=== PATIENT | male | born 1950 | race Two or more races ===

== ENCOUNTER 2017-11-12 10:25 | Observation (INO) | payer OTHER ==
[2017-11-12 11:07] LABS: BASO % 0.4 % (0-2.0); EOS % 1.1 % (0-4.5); HEMATOCRIT 40.9 % (35.4-49); HEMOGLOBIN 13.9 GM/dL (11.7-16.9); LYMPH % 6.6 % (8-40); MCH 29.7 pg (25.7-33.7); MCHC 33.9 g/dl (32.0-35.9); MEAN CELL VOLUME 87.6 fl (80-96); MEAN PLT VOLUME 9.2 fl (7.5-11.1); NEUT % 84.9 % (42.8-82.8); PLATELET COUNT 182 K/MM3 (134-434); RBC 4.67 M/mm3 (4.00-5.60); RDW 12.9 % (11.9-15.9); WHITE BLOOD COUNT 9.5 K/mm3 (4.0-10.0)
--- NOTE | 2017-11-12 11:43 | PDOC ---
History of Present Illness - General Chief Complaint: Blood Sugar Problem Stated Complaint: LOW SUGAR Time Seen by Provider: 11/12/17 10:34 History Source: Patient - History of Present Illness Associated Symptoms: denies: cough, fever/chills, headaches, nausea/vomiting, shortness of breath Past History - Past Medical History Allergies/Adverse Reactions: Allergies Allergy/AdvReac Type Severity Reaction Status Date / Time No Known Drug Allergies Allergy Verified 11/12/17 10:38 Home Medications: Ambulatory Orders Aspirin [Aspirin EC] 81 mg PO DAILY 11/12/17 Enalapril Maleate [Vasotec -] 10 mg PO DAILY 11/12/17 Fluoxetine HCl [Prozac] 20 mg PO DAILY 11/12/17 Fluticasone Prop 0.05% Nasal [Flonase -] 1 - 2 spray NS DAILY 11/12/17 Insulin Aspart [Novolog] 20 unit SQ BID 11/12/17 Insulin Glargine,Hum.rec.anlog [Basaglar Kwikpen U-100] 40 unit SQ AM 11/12/17 Metformin HCl [Metformin HCl ER] 1,000 mg PO DAILY 11/12/17 Omeprazole 40 mg PO DAILY 11/12/17 Oxybutynin Chloride [Oxybutynin Chloride ER] 10 mg PO DAILY 11/12/17 Pramipexole Di-HCl [Mirapex] 0.25 mg PO DAILY 11/12/17 Pravastatin Sodium 20 mg PO DAILY 11/12/17 Repaglinide [Prandin -] 2 mg PO DAILY 11/12/17 Risperidone [Risperdal] 1 mg PO DAILY 11/12/17 Tamsulosin HCl [Flomax] 0.4 mg PO DAILY 11/12/17 Anemia: No Asthma: No Cancer: No Cardiac Disorders: Yes CVA: No COPD: No CHF: No Dementia: No Diabetes: Yes GI Disorders: No Disorders: Yes (Renal stones/Lithotripsy) HTN: Yes Hypercholesterolemia: Yes Liver Disease: No Seizures: No Thyroid Disease: No - Suicide/Smoking/Psychosocial Hx Smoking History: Never smoked Have you smoked in the past 12 months: No Information on smoking cessation initiated: No Hx Alcohol Use: No Drug/Substance Use Hx: No Substance Use Type: None Review of Systems - Review of Systems Constitutional: No: Chills, Fever Respiratory: No: Shortness of Breath Cardiac (ROS): No: Chest Pain, Palpitations ABD/GI: No: Nausea, Vomiting, Abdominal cramping : No: Dysuria Neurological: No: Headache *Physical Exam - Vital Signs Last Vital Signs Temp Pulse Resp BP Pulse Ox 97.7 F 90 16 179/87 100 11/12/17 10:25 11/12/17 10:25 11/12/17 10:25 11/12/17 10:25 11/12/17 10:25 - Physical Exam General Appearance: Yes: Appropriately Dressed. No: Apparent Distress HEENT: positive: Normal Voice Neck: positive: Supple Respiratory/Chest: negative: Respiratory Distress Cardiovascular: positive: Regular Rate, S1, S2 Gastrointestinal/Abdominal: positive: Soft. negative: Tender Integumentary: positive: Dry, Warm Neurologic: positive: Fully Oriented, Alert, Normal Mood/Affect ED Treatment Course - LABORATORY CBC & Chemistry Diagram: 11/12/17 10:57 11/12/17 10:57 - ADDITIONAL ORDERS Additional order review: 11/12/17 10:57 RBC 4.67 MCV 87.6 MCHC 33.9 RDW 12.9 MPV 9.2 Neutrophils % 84.9 H D Lymphocytes % 6.6 L D Monocytes % 7.0 Eosinophils % 1.1 Basophils % 0.4 Medical Decision Making - Medical Decision Making 11/12/17 11:42 47-year-old male history of BPH, hypertension, hyperlipidemia, insulin- dependent diabetes, here with hypoglycemia. Patient states he woke up this a.m. in his usual state of health, ate breakfast and took 40 units of long acting insulin @ 9am. States he then went [place] the [place] and when he returned home, felt weak and dizzy and when he checked finger stick, blood sugar was 26. Has since been given glucose enroute by EMS and feels better. Patient states he currently takes basaglar (insulin glargine) 40 units in the a.m. and novoLog flex pen 20 units twice a day. States he was on lantus up until 2 weeks ago, but switched to basaglar 2/2 insurance issues. States he has been eating and drinking at home as usual See exam Hypoglycemia this am BS 26 this am after taking long acting insulin BG 74 in ED, pt currently eating and well annie -labs -m/l obs admission 11/12/17 14:58 Cr 1.5 (baseline ~1), K 5.6, EKG unremarkable. FS now 303. IVF in progress. Will contact hospitalist and admit *DC/Admit/Observation/Transfer Diagnosis at time of Disposition: Hypoglycemia - Discharge Dispostion Condition at time of disposition: Fair Decision to Admit order: Yes - Referrals Referrals: Neymar Decker MD [Primary Care Provider] - - Patient Instructions - Post Discharge Activity
[2017-11-12 12:23] LABS: ALBUMIN 3.7 g/dl (3.4-5.0); ANION GAP 6 (8-16); BLOOD UREA NITROGEN 22 mg/dL (7-18); CHLORIDE 100 mmol/L (98-107); CO2 31 mmol/L (21-32); CREATININE 1.5 mg/dL (0.7-1.3); GLUCOSE,RANDOM 103 mg/dL (74-106); POTASSIUM 5.6 mmol/L (3.5-5.1); SGOT/AST 25 U/L (15-37); SGPT/ALT 28 U/L (12-78); SODIUM 137 mmol/L (136-145)
[2017-11-12 12:24] LABS: ALK PHOS 123 U/L (45-117); BILIRUBIN,TOTAL 0.6 mg/dL (0.2-1.0); TOT PROT 7.4 g/dl (6.4-8.2)
[2017-11-12] MEDS ORDERED: DEXTROSE 50%-WATER - 25 GM/50 ML VIAL IVPUSH ONE (12:55)
[2017-11-12] MEDS ORDERED: SODIUM CHLORIDE 500 ML IV STA ×2 (13:18→14:46)
[2017-11-12] MEDS ORDERED: ACETAMINOPHEN 325 MG TABLET (FP) PO ONE (17:40)
[2017-11-12] MEDS ORDERED: ACETAMINOPHEN 325 MG TABLET (FP) ONE (17:42)
--- NOTE | 2017-11-12 17:42 | HP ---
Admitting History and Physical - Admission Chief Complaint: hypoglycemia History of Present Illness: This is a 67 year old male with pmhx DM II, BPH, HTN, HLD, presented with hypoglycemia. Pts insurance was changed and wont pay for his old novolog. He states his sugar drops in previous regimen but, now its been dropping lower and he doesn't know when its going to worsen. He had breakfast and took 40 units of long acting insulin @ 9am went to the supermarket and when he went home he felt weak and dizzy. He checked his BGM and it was 26. EMS gave him glucose and now he feels better. Pt takes basilar (insulin glargine) 40 units in the a.m. and novoLog flex pen 20 units twice a day. History Source: Patient Limitations to Obtaining History: No Limitations - Past Medical History Cardiovascular: Yes: HTN Renal/: Yes: BPH Endocrine: Yes: Diabetes Mellitus - Smoking History Smoking history: Never smoked Have you smoked in the past 12 months: No - Alcohol/Substance Use Hx Alcohol Use: No - Social History Usual Living Arrangement: Yes: With Spouse ADL: Independent Home Medications - Allergies Allergies/Adverse Reactions: Allergies Allergy/AdvReac Type Severity Reaction Status Date / Time No Known Drug Allergies Allergy Verified 11/12/17 10:38 - Home Medications Home Medications: Ambulatory Orders Aspirin [Aspirin EC] 81 mg PO DAILY 11/12/17 Enalapril Maleate [Vasotec -] 10 mg PO DAILY 11/12/17 Fluoxetine HCl [Prozac] 20 mg PO DAILY 11/12/17 Fluticasone Prop 0.05% Nasal [Flonase -] 1 - 2 spray NS DAILY 11/12/17 Insulin Aspart [Novolog] 20 unit SQ BID 11/12/17 Insulin Glargine,Hum.rec.anlog [Basaglar Kwikpen U-100] 40 unit SQ AM 11/12/17 Metformin HCl [Metformin HCl ER] 1,000 mg PO DAILY 11/12/17 Omeprazole 40 mg PO DAILY 11/12/17 Oxybutynin Chloride [Oxybutynin Chloride ER] 10 mg PO DAILY 11/12/17 Pramipexole Di-HCl [Mirapex] 0.25 mg PO DAILY 11/12/17 Pravastatin Sodium 20 mg PO DAILY 11/12/17 Repaglinide [Prandin -] 2 mg PO DAILY 11/12/17 Risperidone [Risperdal] 1 mg PO DAILY 11/12/17 Tamsulosin HCl [Flomax] 0.4 mg PO DAILY 11/12/17 Review of Systems - Review of Systems Constitutional: reports: No Symptoms Eyes: reports: No Symptoms HENT: reports: No Symptoms Neck: reports: No Symptoms Cardiovascular: reports: No Symptoms Respiratory: reports: No Symptoms Gastrointestinal: reports: No Symptoms Genitourinary: reports: No Symptoms Breasts: reports: No Symptoms Reported Musculoskeletal: reports: No Symptoms Integumentary: reports: No Symptoms Neurological: reports: Headache Endocrine: reports: No Symptoms Hematology/Lymphatic: reports: No Symptoms Psychiatric: reports: No Symptoms Physical Examination Vital Signs: Vital Signs Temperature 98.5 F 11/12/17 13:18 Pulse Rate 79 11/12/17 13:18 Respiratory Rate 18 11/12/17 13:18 Blood Pressure 160/87 11/12/17 13:18 O2 Sat by Pulse Oximetry (%) 99 11/12/17 13:18 Constitutional: Yes: No Distress Eyes: Yes: Conjunctiva Clear HENT: Yes: Nasal Congestion Neck: Yes: Supple Cardiovascular: Yes: Regular Rate and Rhythm, S1, S2 Respiratory: Yes: Regular, CTA Bilaterally Gastrointestinal: Yes: Normal Bowel Sounds, Soft Renal/: Yes: WNL Musculoskeletal: Yes: WNL Extremities: Yes: WNL Edema: No Neurological: Yes: Alert, Oriented, Cran Nerves II-XII Intact Labs: CBC, BMP 11/12/17 10:57 11/12/17 10:57 Problem List - Problems (1) Hypoglycemia Code(s): E16.2 - HYPOGLYCEMIA, UNSPECIFIED Assessment/Plan Assessment: 67 year old male with hypoglycemia Plan: 1. Hypoglycemia - ISS, BGM ACHS - Endocrine consult - Give novolog 10units hs, trend bgm 2. YUNG - IVF 3. DVT - oob ambulate Visit type - Emergency Visit Emergency Visit: Yes ED Registration Date: 11/12/17 Care time: The patient presented to the Emergency Department on the above date and was hospitalized for further evaluation of their emergent condition. - New Patient This patient is new to me today: Yes Date on this admission: 11/12/17 - Critical Care Critical Care patient: No Hospitalist Screening - Colonoscopy Questionnaire Colonoscopy Questionnaire: Colonoscopy Questionnaire - Patient: 50 - 75 years old and never had a screening colonoscopy: Unknown History of colon or rectal polyps, or CA: Unknown History of IBD, Crohn's disease or UC: Unknown History of abdominal radiation therapy as a child: Unknown - Relative: 1 with colon or rectal CA, or polyps at age 60 or younger: Unknown Colon or rectal CA diagnosed at age 45 or younger: Unknown Multiple relatives with colon or rectal CA: Unknown - Outcome: Screening Result: Negative Screen
[2017-11-12] MEDS ORDERED: SODIUM CHLORIDE 1,000 ML IV SCH (18:15)
[2017-11-12 19:21] VITALS: BMI 25.8
[2017-11-12] MEDS ORDERED: ENALAPRIL MALEATE 10 MG TABLET (FP) PO ONE (21:00)
[2017-11-12] MEDS: INSULIN SLIDING SCALE (NOVOLOG) 1 VIAL SQ SCH (21:27)
[2017-11-12] MEDS: HEPARIN NA (PORCINE) 5,000 UNITS/ML 1ML VIAL SQ SCH (21:28)
[2017-11-12] MEDS ORDERED: INSULIN SLIDING SCALE (NOVOLOG) 1 VIAL SQ SCH (22:00)
[2017-11-13] MEDS: HEPARIN NA (PORCINE) 5,000 UNITS/ML 1ML VIAL SQ SCH (06:33)
[2017-11-13] MEDS: INSULIN SLIDING SCALE (NOVOLOG) 1 VIAL SQ SCH ×2 (06:33→11:42)
[2017-11-13 07:32] LABS: BASO % 0.5 % (0-2.0); EOS % 2.1 % (0-4.5); HEMATOCRIT 40.6 % (35.4-49); HEMOGLOBIN 13.8 GM/dL (11.7-16.9); LYMPH % 17.9 % (8-40); MCH 29.4 pg (25.7-33.7); MCHC 33.9 g/dl (32.0-35.9); MEAN CELL VOLUME 86.8 fl (80-96); MEAN PLT VOLUME 9.7 fl (7.5-11.1); MONO % 7.9 % (3.8-10.2); NEUT % 71.6 % (42.8-82.8); PLATELET COUNT 183 K/MM3 (134-434); RBC 4.67 M/mm3 (4.00-5.60); RDW 12.8 % (11.9-15.9); WHITE BLOOD COUNT 5.6 K/mm3 (4.0-10.0)
[2017-11-13 07:49] LABS: ALBUMIN 3.4 g/dl (3.4-5.0); ANION GAP 5 (8-16); BILIRUBIN,TOTAL 0.5 mg/dL (0.2-1.0); BLOOD UREA NITROGEN 19 mg/dL (7-18); CALCIUM 8.4 mg/dL (8.5-10.1); CHLORIDE 106 mmol/L (98-107); CO2 28 mmol/L (21-32); GLUCOSE,RANDOM 242 mg/dL (74-106); MAGNESIUM 1.9 mg/dL (1.8-2.4); POTASSIUM 4.8 mmol/L (3.5-5.1); SGOT/AST 12 U/L (15-37); SGPT/ALT 14 U/L (12-78); SODIUM 139 mmol/L (136-145); TOT PROT 6.2 g/dl (6.4-8.2)
[2017-11-13 07:50] LABS: ALK PHOS 76 U/L (45-117)
[2017-11-13 07:58] LABS: URINE APPEARANCE CLEAR; URINE BILIRUBIN NEGATIVE (<2.0 mg/dL); URINE COLOR STRAW; URINE GLUCOSE (UA) 3+ (NEGATIVE); URINE KETONE NEGATIVE (NEGATIVE); URINE LEUK ESTERASE NEGATIVE (NEGATIVE); URINE NITRITE NEGATIVE (NEGATIVE); URINE PROTEIN NEGATIVE (NEGATIVE); URINE UROBILINOGEN NEGATIVE mg/dL (0.2-1.0)
[2017-11-13 11:09] VITALS: BP 151/86; PULSE 79; TEMP 98.2
--- NOTE | 2017-11-13 11:22 | DS ---
Physical Exam: SUBJECTIVE: Patient seen and examined OBJECTIVE: Vital Signs Period Temp Pulse Resp BP Sys/Velasco Pulse Ox Last 24 Hr 97.4 F-98.5 F 74-79 18-20 137-160/79-87 96-99 PHYSICAL EXAM GENERAL: The patient is awake, alert, and fully oriented, in no acute distress. HEAD: Normal with no signs of trauma. EYES: PERRL, extraocular movements intact, sclera anicteric, conjunctiva clear. ENT: Ears normal, nares patent, oropharynx clear without exudates, moist mucous membranes. NECK: Trachea midline, full range of motion, supple. LUNGS: Breath sounds equal, clear to auscultation bilaterally, no wheezes, no crackles, no accessory muscle use. HEART: Regular rate and rhythm, S1, S2 without murmur, rub or gallop. ABDOMEN: Soft, nontender, nondistended, normoactive bowel sounds, no guarding, no rebound, no hepatosplenomegaly, no masses. EXTREMITIES: 2+ pulses, warm, well-perfused, no edema. NEUROLOGICAL: Cranial nerves II through XII grossly intact. Normal speech, gait not observed. PSYCH: Normal mood, normal affect. SKIN: Warm, dry, normal turgor, no rashes or lesions noted. LABS Laboratory Results - last 24 hr 11/12/17 11/12/17 11/12/17 10:43 10:57 14:20 WBC RBC Hgb Hct MCV MCH MCHC RDW Plt Count MPV Neutrophils % Lymphocytes % Monocytes % Eosinophils % Basophils % Sodium 137 Potassium 5.6 H D Chloride 100 Carbon Dioxide 31 Anion Gap 6 L BUN 22 H D Creatinine 1.5 H D Creat Clearance w eGFR 46.40 POC Glucometer [phone] Random Glucose 103 D Calcium 9.0 Phosphorus Magnesium Total Bilirubin 0.6 AST 25 D ALT 28 D Alkaline Phosphatase 123 H D Total Protein 7.4 D Albumin 3.7 Urine Color Urine Appearance Urine pH Ur Specific [place] Urine Protein Urine Glucose (UA) Urine Ketones Urine Blood Urine Nitrite Urine Bilirubin Urine Urobilinogen Ur Leukocyte Esterase 11/12/17 11/13/17 11/13/17 21:26 05:00 05:45 WBC RBC Hgb Hct MCV MCH MCHC RDW Plt Count MPV Neutrophils % Lymphocytes % Monocytes % Eosinophils % Basophils % Sodium Potassium Chloride Carbon Dioxide Anion Gap BUN Creatinine Creat Clearance w eGFR POC Glucometer 347 225 Random Glucose Calcium Phosphorus Magnesium Total Bilirubin AST ALT Alkaline Phosphatase Total Protein Albumin Urine Color Straw Urine Appearance Clear Urine pH 6.0 Ur Specific [place] 1.017 Urine Protein Negative Urine Glucose (UA) 3+ H Urine Ketones Negative Urine Blood Negative Urine Nitrite Negative Urine Bilirubin Negative Urine Urobilinogen Negative Ur Leukocyte Esterase Negative 11/13/17 11/13/17 07:10 07:10 WBC 5.6 D RBC 4.67 Hgb 13.8 Hct 40.6 MCV 86.8 MCH 29.4 MCHC 33.9 RDW 12.8 Plt Count 183 MPV 9.7 Neutrophils % 71.6 Lymphocytes % 17.9 D Monocytes % 7.9 Eosinophils % 2.1 D Basophils % 0.5 Sodium 139 Potassium 4.8 Chloride 106 Carbon Dioxide 28 Anion Gap 5 L BUN 19 H Creatinine 1.0 D Creat Clearance w eGFR > 60 POC Glucometer Random Glucose 242 H D Calcium 8.4 L Phosphorus 3.0 Magnesium 1.9 Total Bilirubin 0.5 AST 12 L D ALT 14 D Alkaline Phosphatase 76 D Total Protein 6.2 L Albumin 3.4 Urine Color Urine Appearance Urine pH Ur Specific [place] Urine Protein Urine Glucose (UA) Urine Ketones Urine Blood Urine Nitrite Urine Bilirubin Urine Urobilinogen Ur Leukocyte Esterase HOSPITAL COURSE: Date of Admission:11/12/17 Date of Discharge: 11/13/17 Discharge Summary Reason For Visit: HYPOGLYCEMIA Current Active Problems Hypoglycemia (Acute) Condition: Stable - Instructions Diet, Activity, Other Instructions: Please return to the ED for any new, persistent, or worsening symptoms. Follow up with Dr. Decker next week for further insulin instructions. Take medication as directed on home discharge list. Read nutrition papers on diabetic diet Referrals: Neymar Decker MD [Primary Care Provider] - 1 Week (Followup with Dr. Decker for when to restart metformin and if need to increase insulin ) Disposition: HOME - Home Medications Comprehensive Discharge Medication List: Ambulatory Orders Aspirin [Aspirin EC] 81 mg PO DAILY 11/12/17 Enalapril Maleate [Vasotec -] 10 mg PO DAILY 11/12/17 Fluoxetine HCl [Prozac] 20 mg PO DAILY 11/12/17 Fluticasone Prop 0.05% Nasal [Flonase -] 1 - 2 spray NS DAILY 11/12/17 Omeprazole 40 mg PO DAILY 11/12/17 Oxybutynin Chloride [Oxybutynin Chloride ER] 10 mg PO DAILY 11/12/17 Pramipexole Di-HCl [Mirapex] 0.25 mg PO DAILY 11/12/17 Pravastatin Sodium 20 mg PO DAILY 11/12/17 Repaglinide [Prandin -] 2 mg PO DAILY 11/12/17 Risperidone [Risperdal] 1 mg PO DAILY 11/12/17 Tamsulosin HCl [Flomax] 0.4 mg PO DAILY 11/12/17 Insulin Glargine,Hum.rec.anlog [Sergio Clements U-100] 20 unit SQ AM #1 insuln.pen 11/13/17 Problem List - Problems (1) Hypoglycemia Code(s): E16.2 - HYPOGLYCEMIA, UNSPECIFIED
--- NOTE | 2017-11-13 11:44 | EKG ---
Test Reason : Blood Pressure : / mmHG Vent. Rate : 079 BPM Atrial Rate : 079 BPM P-R Int : 148 ms QRS Dur : 076 ms QT Int : 364 ms P-R-T Axes : 043 020 039 degrees QTc Int : 417 ms POOR DATA QUALITY, INTERPRETATION MAY BE ADVERSELY AFFECTED NORMAL SINUS RHYTHM SEPTAL INFARCT , AGE UNDETERMINED ABNORMAL ECG WHEN COMPARED WITH ECG OF 26-NOV-2015 11:58, NO SIGNIFICANT CHANGE WAS FOUND Confirmed by ELIZABETH BLANCA, J LUIS ([id number]) on 11/13/2017 11:43:55 AM Referred By: Confirmed By:J LUIS JOHNSON MD
--- NOTE | 2017-11-13 18:57 | DS ---
Physical Exam: SUBJECTIVE: Patient seen and examined. No issues, denies antonio. OBJECTIVE: Vital Signs Period Temp Pulse Resp BP Sys/Velasco Pulse Ox Last 24 Hr 97.4 F-98.2 F 74-79 18-20 137-151/79-86 96-96 PE Neuro: alert, awake, cn 2-12intact Pulm: CTAB CV: s1 s2 rrr Abd: s nt nd + bs Ext: Warm no le edema Laboratory Results - last 24 hr 11/13/17 11/13/17 11/13/17 07:10 07:10 11:41 WBC 5.6 D RBC 4.67 Hgb 13.8 Hct 40.6 MCV 86.8 MCH 29.4 MCHC 33.9 RDW 12.8 Plt Count 183 MPV 9.7 Neutrophils % 71.6 Lymphocytes % 17.9 D Monocytes % 7.9 Eosinophils % 2.1 D Basophils % 0.5 Sodium 139 Potassium 4.8 Chloride 106 Carbon Dioxide 28 Anion Gap 5 L BUN 19 H Creatinine 1.0 D Creat Clearance w eGFR > 60 POC Glucometer 334 Random Glucose 242 H D Calcium 8.4 L Phosphorus 3.0 Magnesium 1.9 Total Bilirubin 0.5 AST 12 L D ALT 14 D Alkaline Phosphatase 76 D Total Protein 6.2 L Albumin 3.4 Urine Color Urine Appearance Urine pH Ur Specific [place] Urine Protein Urine Glucose (UA) Urine Ketones Urine Blood Urine Nitrite Urine Bilirubin Urine Urobilinogen Ur Leukocyte Esterase HOSPITAL COURSE: Date of Admission:11/12/17 Date of Discharge: 11/13/17 Minutes to complete discharge: 37 Discharge Summary Reason For Visit: HYPOGLYCEMIA Hospital Course: DC summary: 67 year old male with pmhx DM II, BPH, HTN, HLD, presented with hypoglycemia. Pts insurance was changed and wont pay for his old novolog. He his sugar drops with previous regimen but, now its been dropping lower and he doesn't know when its going to worsen. He had breakfast and took 40 units of long acting insulin @ 9am went to the supermarket and when he went home he felt weak and dizzy. He checked his BGM and it was 26. EMS gave him glucose and now he feels better. Pt takes basilar (insulin glargine) 40 units in the a.m. and novoLog flex pen 20 units twice a day. 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 Follow up with Dr. Decker next week for further insulin instructions. Take medication as directed on home discharge list. Read nutrition papers on diabetic diet Continue insulin sliding scale as directed with home regimen Stop metformin until you see your doctor again Decrease morning insulin from 40units to 20units, if you find your sugars are high increase by 5units daily but do not exceed 40units, monitor your sugar closely until you see Dr. Decker. Referrals: Neymar Decker MD [Primary Care Provider] - 1 Week (Followup with Dr. Decker for when to restart metformin and if need to increase insulin ) Disposition: HOME - Home Medications Comprehensive Discharge Medication List: Ambulatory Orders Aspirin [Aspirin EC] 81 mg PO DAILY 11/12/17 Enalapril Maleate [Vasotec -] 10 mg PO DAILY 11/12/17 Fluoxetine HCl [Prozac] 20 mg PO DAILY 11/12/17 Fluticasone Prop 0.05% Nasal [Flonase -] 1 - 2 spray NS DAILY 11/12/17 Omeprazole 40 mg PO DAILY 11/12/17 Oxybutynin Chloride [Oxybutynin Chloride ER] 10 mg PO DAILY 11/12/17 Pramipexole Di-HCl [Mirapex] 0.25 mg PO DAILY 11/12/17 Pravastatin Sodium 20 mg PO DAILY 11/12/17 Repaglinide [Prandin -] 2 mg PO DAILY 11/12/17 Risperidone [Risperdal] 1 mg PO DAILY 11/12/17 Tamsulosin HCl [Flomax] 0.4 mg PO DAILY 11/12/17 Insulin Glargine,Hum.rec.anlog [Basaglar Kwikpen U-100] 20 unit SQ AM #1 insuln.pen 11/13/17 Problem List - Problems (1) Hypoglycemia Code(s): E16.2 - HYPOGLYCEMIA, UNSPECIFIED This patient is new to me today: No Emergency Visit: Yes ED Registration Date: 11/12/17 Care time: The patient presented to the Emergency Department on the above date and was hospitalized for further evaluation of their emergent condition. Critical Care patient: No - Discharge Referral Referred to [facility] No
== END 2017-11-13 13:49 | disposition home or self-care (01) ==
LOC: JER 10:25 → JERBED 16:05 → J5S 18:18
PROVIDERS: ADMIT Internal Medicine; ATTEND Nurse Practitioner Acute Care
PROC: 3E0337Z Introduction of Electrolytic and Water Balance Substance into Peripheral Vein, Percutaneous Approach (ICD-10-PCS; principal; 2017-11-12)
PROC: 3E013VG Introduction of Insulin into Subcutaneous Tissue, Percutaneous Approach (ICD-10-PCS; 2017-11-12)
PROC: 3E033GC Introduction of Other Therapeutic Substance into Peripheral Vein, Percutaneous Approach (ICD-10-PCS; 2017-11-12)
DX: E11.649 Type 2 diabetes mellitus with hypoglycemia without coma (principal); Z79.4 Long term (current) use of insulin; Z79.84 Long term (current) use of oral hypoglycemic drugs; I10 Essential (primary) hypertension; E78.5 Hyperlipidemia, unspecified; N40.0 Benign prostatic hyperplasia without lower urinary tract symptoms; Z79.82 Long term (current) use of aspirin
CPT/HCPCS: 36415; 80053; 81003; 82962; 83735; 84100; 85025; 93005; 93010; 96360; 96361; 96372; 99285-25; G0378; J1644; J7030

== ENCOUNTER 2017-11-18 09:58 | Observation (INO) | payer OTHER ==
--- NOTE | 2017-11-18 10:16 | PDOC ---
History of Present Illness - General History Source: Patient, Family, Spouse Exam Limitations: No Limitations - History of Present Illness Initial Comments: 11/18/17 11:04 The patient is a 67 year old male with a significant past medical history of hypertension, hyperlipidemia, kidney stones, benign prostatic hyperplasia, diabetes, restless leg syndrome, alzheimer's and dementia, brought in by EMS, who presents to the emergency department for evaluation of chest pain. The patient reports an episode of chest pain beginning at 6am. He reports an episode left sided chest pain, non radiating, for a duration of 5 minutes. He states "the chest pain is an uncomfortable feeling rather than pain". He reports associated symptoms of diaphoresis, headache, nausea, dizziness, and dyspnea. He reports the urge to vomit, but is unable to. Of note, the diabetic POC reported to be 230 as per EMS. The patient denies fevers, chills, vomiting, diarrhea, and constipation. Denies dysuria, frequency, urgency, and hematuria. Allergies: NKA Past surgical history: Kidney stone removal. Social history: No reported cigarette, alcohol, or drug use. PCP: Dr. Decker <George Phipps - Last Filed: 11/18/17 11:03> <Neymar Terry - Last Filed: 11/18/17 11:53> - General Chief Complaint: Chest Pain Stated Complaint: DM,WEAKNESS Time Seen by Provider: 11/18/17 10:15 Past History <George Phipps - Last Filed: 11/18/17 11:03> - Past Medical History COPD: No Dementia: Yes Diabetes: Yes HTN: Yes Hypercholesterolemia: Yes Kidney Stones: Yes Other medical history: BPH, RESTLESS LEG SYNDROME - Suicide/Smoking/Psychosocial Hx Smoking History: Never smoked Have you smoked in the past 12 months: No Information on smoking cessation initiated: No Hx Alcohol Use: No Drug/Substance Use Hx: No Substance Use Type: None <Neymar Terry - Last Filed: 11/18/17 11:53> - Past Medical History Allergies/Adverse Reactions: Allergies Allergy/AdvReac Type Severity Reaction Status Date / Time No Known Allergies Allergy Verified 11/18/17 10:08 Home Medications: Ambulatory Orders Aspirin [Aspirin EC] 81 mg PO DAILY 11/18/17 Diphenhydramine [Benadryl -] 50 mg PO HS 11/18/17 Enalapril Maleate [Vasotec -] 10 mg PO DAILY 11/18/17 Fluoxetine HCl [Prozac -] 20 mg PO DAILY 11/18/17 Fluticasone Prop 0.05% Nasal [Flonase -] 1 - 2 spray NS DAILY 11/18/17 Insulin Aspart [Novolog] 0 unit SQ ACHS PRN 11/18/17 Insulin Glargine,Hum.rec.anlog [Basaglar Kwikpen U-100] 20 unit SQ HS 11/18/17 Metformin HCl [Glucophage] 1,000 mg PO BID 11/18/17 Omeprazole 40 mg PO DAILY 11/18/17 Oxybutynin Chloride [Oxybutynin Chloride ER] 10 mg PO DAILY 11/18/17 Pramipexole Dihydrochloride [Mirapex -] 0.25 mg PO HS 11/18/17 Pravastatin Sodium 20 mg PO DAILY 11/18/17 Risperidone [Risperdal] 1 mg PO DAILY 11/18/17 Tamsulosin HCl [Flomax] 0.4 mg PO DAILY 11/18/17 Review of Systems - Review of Systems Able to Perform ROS?: Yes Comments:: A complete review of 10 out of 10 review of systems is taken and is negative apart from what is previously mentioned below and in the HPI. <George Phipps - Last Filed: 11/18/17 11:03> *Physical Exam - Vital Signs Last Vital Signs Temp Pulse Resp BP Pulse Ox 98.2 F 90 18 112/63 94 L 11/18/17 10:09 11/18/17 10:09 11/18/17 10:11/18/17 10:11/18/17 10:09 - Physical Exam Comments: Vitals: Triage Vital signs reviewed General Appearance: no acute distress, well nourished well developed, Head: Atraumatic, normocephalic Eyes: Pupils equal reactive round, extraocular movement intact Nose: Nares patent bilaterally Neck: Supple;No Nuchal rigidity Chest Wall: Nontender Cardiac: Regular rate and rhythm, no murmurs, no rubs, no gallops, Lungs: Clear to auscultation bilateral, good air movement bilaterally, Abdomen: Soft, nondistended, normal bowel sounds, nontender to palpation Rectal: Exam deferred Extremities: Full range of motion to all extremities, no cyanosis, clubbing, or edema Skin: Warm and dry, no rashes or lesions, no petechiae Psych: normal mood, normal affect <George Phipps - Last Filed: 11/18/17 11:03> - Vital Signs Last Vital Signs Temp Pulse Resp BP Pulse Ox 98.2 F 90 18 112/63 94 L 11/18/17 10:09 11/18/17 10:09 11/18/17 10:09 11/18/17 10:09 11/18/17 10:09 <Neymar Terry - Last Filed: 11/18/17 11:53> Heart Score/ECG Review - ECG Impressions Comment:: Reviewed by Dr. Terry at 10:18. Impression: Normal sinus rhythm. Normal ECG. Vent. Rate 80 bpm MT Interval 168 ms QRS duration 78 ms QT/QTc 376/433 ms P-R-T axes 55 49 49 <George Phipps - Last Filed: 11/18/17 11:03> - History History: Moderately suspicious - Electrocardiogram EKG: Normal - Age Age: >/= 65 - Risk Factors Based on the list above the patient has:: >/=3 risk factors or Hx atherosclerotic disease - Troponin Troponin: 1-3x normal limit - Score Heart Score - Total: 6 <Neymar Terry - Last Filed: 11/18/17 11:53> ED Treatment Course - LABORATORY CBC & Chemistry Diagram: 11/18/17 10:30 11/18/17 10:30 - ADDITIONAL ORDERS Additional order review: 11/18/17 10:30 RBC 4.88 MCV 86.7 MCHC 33.0 RDW 12.8 MPV 9.3 Neutrophils % 87.9 H Lymphocytes % 5.6 L Monocytes % 6.0 Eosinophils % 0.3 Basophils % 0.2 <George Phipps - Last Filed: 11/18/17 11:03> - LABORATORY CBC & Chemistry Diagram: 11/18/17 10:30 11/18/17 10:30 <Neymar Terry - Last Filed: 11/18/17 11:53> Medical Decision Making - Medical Decision Making The patient is a 67 year old male with a significant past medical history of hypertension, hyperlipidemia, kidney stones, benign prostatic hyperplasia, diabetes, restless leg syndrome, alzheimer's and dementia, brought in by EMS, who presents to the emergency department for evaluation of chest pain. Plan: Chest x-ray Labs ECG <George Phipps - Last Filed: 11/18/17 11:03> - Medical Decision Making Patient with reported episode of chest pain diaphoresis nausea this morning. EKG demonstrates no ST elevations no T-wave inversions. Based on patient's age history and risk factors, heart score 6 require admission with cardiology consultation. Full dose aspirin ordered. We'll admit to hospital for further management. <Neymar Terry - Last Filed: 11/18/17 11:53> *DC/Admit/Observation/Transfer - Attestations Scribe Attestion: Documentation prepared by George Phipps, acting as medical case manager for Neymar Terry MD. <George Phipps - Last Filed: 11/18/17 11:03> - Discharge Dispostion Decision to Admit order: Yes <Neymar Terry - Last Filed: 11/18/17 11:53> Diagnosis at time of Disposition: Chest pain Qualifiers: Chest pain type: unspecified Qualified Code(s): R07.9 - Chest pain, unspecified - Discharge Dispostion Condition at time of disposition: Stable
[2017-11-18 10:26] VITALS: BMI 25.8
[2017-11-18 10:51] LABS: BASO % 0.2 % (0-2.0); EOS % 0.3 % (0-4.5); HEMATOCRIT 42.3 % (35.4-49); LYMPH % 5.6 % (8-40); MCH 28.6 pg (25.7-33.7); MEAN CELL VOLUME 86.7 fl (80-96); MEAN PLT VOLUME 9.3 fl (7.5-11.1); NEUT % 87.9 % (42.8-82.8); PLATELET COUNT 176 K/MM3 (134-434); RBC 4.88 M/mm3 (4.00-5.60); RDW 12.8 % (11.9-15.9); WHITE BLOOD COUNT 8.2 K/mm3 (4.0-10.0)
[2017-11-18 11:20] LABS: ALBUMIN 3.8 g/dl (3.4-5.0); ANION GAP 7 (8-16); BILIRUBIN,TOTAL 0.7 mg/dL (0.2-1.0); BLOOD UREA NITROGEN 27 mg/dL (7-18); CALCIUM 9.1 mg/dL (8.5-10.1); CHLORIDE 101 mmol/L (98-107); CO2 30 mmol/L (21-32); CREATININE 1.4 mg/dL (0.7-1.3); GLUCOSE,RANDOM 193 mg/dL (74-106); POTASSIUM 4.3 mmol/L (3.5-5.1); SGOT/AST 16 U/L (15-37); SGPT/ALT 19 U/L (12-78); SODIUM 138 mmol/L (136-145); TOT PROT 6.8 g/dl (6.4-8.2)
[2017-11-18 11:23] LABS: ALK PHOS 77 U/L (45-117)
--- NOTE | 2017-11-18 11:49 | EKG ---
Test Reason : Blood Pressure : / mmHG Vent. Rate : 080 BPM Atrial Rate : 080 BPM P-R Int : 168 ms QRS Dur : 078 ms QT Int : 376 ms P-R-T Axes : 055 049 049 degrees QTc Int : 433 ms NORMAL SINUS RHYTHM NORMAL ECG NO PREVIOUS ECGS AVAILABLE Confirmed by MD RILEY, VERONA ([id number]) on 11/18/2017 11:48:52 AM Referred By: Confirmed By:VERONA LIN MD
[2017-11-18] MEDS ORDERED: ASPIRIN 325 MG ENTERIC COATED TABLET (FP) PO ONE (11:50)
[2017-11-18] MEDS ORDERED: ASPIRIN 325 MG TABLET ONE (12:01)
--- NOTE | 2017-11-18 12:43 | HP ---
CHIEF COMPLAINT: Chest pain PCP: Dr. Decker HISTORY OF PRESENT ILLNESS: 67 year-old male with a PMH significant for HTN, HLD, IDDM, kidney stones, BPH, restless leg syndrome, and dementia, brought in by EMS, who presents to the emergency department for evaluation of chest pain. The patient reports an episode of left-sided chest pain beginning at 6am. He describes the pain as non- radiating, "uncomfortable feeling," lasting for 5 minutes. He reports associated symptoms of diaphoresis, headache, nausea, dizziness, and dyspnea. Patient denies fevers, chills, vomiting, diarrhea, and constipation. Denies dysuria, frequency, urgency, and hematuria. Fingerstick by EMS in the field was 230. ER course was notable for: (1) Troponin 0.06, two pending (2) ECG sinus rhythm @ 80bpm (3) CXR unremarkable Recent Travel: No PAST MEDICAL HISTORY: Hypertension Hyperlipidemia IDDM Kidney stones BPH Restless leg symdrome Dementia PAST SURGICAL HISTORY: Kidney stone removal Social History: Smoking: no Alcohol: no Drugs: no Family History: Allergies No Known Allergies Allergy (Verified 11/18/17 10:08) HOME MEDICATIONS: Home Medications Medication Instructions Recorded Aspirin [Aspirin EC] 81 mg PO DAILY 11/18/17 Diphenhydramine [Benadryl -] 50 mg PO HS 11/18/17 Enalapril Maleate [Vasotec -] 10 mg PO DAILY 11/18/17 Fluoxetine HCl [Prozac -] 20 mg PO DAILY 11/18/17 Fluticasone Prop 0.05% Nasal 1 - 2 spray NS DAILY 11/18/17 [Flonase -] Insulin Aspart [Novolog] 0 unit SQ ACHS PRN 11/18/17 Insulin Glargine,Hum.rec.anlog 20 unit SQ HS 11/18/17 [Basaglar Kwikpen U-100] Metformin HCl [Glucophage] 1,000 mg PO BID 11/18/17 Omeprazole 40 mg PO DAILY 11/18/17 Oxybutynin Chloride [Oxybutynin 10 mg PO DAILY 11/18/17 Chloride ER] Pramipexole Dihydrochloride 0.25 mg PO HS 11/18/17 [Mirapex -] Pravastatin Sodium 20 mg PO DAILY 11/18/17 Risperidone [Risperdal] 1 mg PO DAILY 11/18/17 Tamsulosin HCl [Flomax] 0.4 mg PO DAILY 11/18/17 REVIEW OF SYSTEMS CONSTITUTIONAL: Absent: fever, chills, diaphoresis, generalized weakness, malaise, loss of appetite, weight change HEENT: Absent: rhinorrhea, nasal congestion, throat pain, throat swelling, difficulty swallowing, mouth swelling, ear pain, eye pain, visual changes CARDIOVASCULAR: +chest pain, diaphoresis, SOB, nausea Absent: syncope, palpitations, irregular heart rate, lightheadedness, peripheral edema RESPIRATORY: Absent: cough, shortness of breath, dyspnea with exertion, orthopnea, wheezing, stridor, hemoptysis GASTROINTESTINAL: Absent: abdominal pain, abdominal distension, nausea, vomiting, diarrhea, constipation, melena, hematochezia GENITOURINARY: Absent: dysuria, frequency, urgency, hesitancy, hematuria, flank pain, genital pain MUSCULOSKELETAL: Absent: myalgia, arthralgia, joint swelling, back pain, neck pain SKIN: Absent: rash, itching, pallor HEMATOLOGIC/IMMUNOLOGIC: Absent: easy bleeding, easy bruising, lymphadenopathy, frequent infections ENDOCRINE: Absent: unexplained weight gain, unexplained weight loss, heat intolerance, cold intolerance NEUROLOGIC: Absent: headache, focal weakness or paresthesias, dizziness, unsteady gait, seizure, mental status changes, bladder or bowel incontinence PSYCHIATRIC: Absent: anxiety, depression, suicidal or homicidal ideation, hallucinations. PHYSICAL EXAMINATION Vital Signs - 24 hr 11/18/17 10:09 Temperature 98.2 F Pulse Rate 90 Respiratory 18 Rate Blood Pressure 112/63 O2 Sat by Pulse 94 L Oximetry (%) GENERAL: Awake, alert, and fully oriented, in no acute distress. HEAD: Normal with no signs of trauma. EYES: Pupils equal, round and reactive to light, extraocular movements intact, sclera anicteric, conjunctiva clear. EARS, NOSE, THROAT: Ears normal, nares patent, oropharynx clear without exudates. Moist mucous membranes. NECK: Normal range of motion, supple without lymphadenopathy, JVD, or masses. LUNGS: Breath sounds equal, clear to auscultation bilaterally. No wheezes, and no crackles. No accessory muscle use. HEART: Regular rate and rhythm, normal S1 and S2 ABDOMEN: Soft, nontender, not distended, normoactive bowel sounds, no guarding, no rebound. MUSCULOSKELETAL: Normal range of motion at all joints. No bony deformities or tenderness. No CVA tenderness. UPPER EXTREMITIES: 2+ pulses, warm, well-perfused. No cyanosis. No clubbing. No peripheral edema. LOWER EXTREMITIES: 2+ pulses, warm, well-perfused. No calf tenderness. No peripheral edema. NEUROLOGICAL: Cranial nerves II-XII intact. Normal speech. Normal gait. PSYCHIATRIC: Cooperative. Good eye contact. Appropriate mood and affect. SKIN: Warm, dry, normal turgor. Laboratory Results - last 24 hr 11/18/17 11/18/17 10:30 10:30 WBC 8.2 RBC 4.88 Hgb 14.0 Hct 42.3 MCV 86.7 MCH 28.6 MCHC 33.0 RDW 12.8 Plt Count 176 MPV 9.3 Neutrophils % 87.9 H Lymphocytes % 5.6 L Monocytes % 6.0 Eosinophils % 0.3 Basophils % 0.2 Sodium 138 Potassium 4.3 Chloride 101 Carbon Dioxide 30 Anion Gap 7 L BUN 27 H Creatinine 1.4 H Creat Clearance w eGFR 50.25 Random Glucose 193 H Calcium 9.1 Total Bilirubin 0.7 AST 16 ALT 19 Alkaline Phosphatase 77 Troponin I 0.06 H Total Protein 6.8 Albumin 3.8 ASSESSMENT/PLAN 67 year-old male with a PMH significant for HTN, HLD, IDDM, kidney stones, BPH, restless leg syndrome, and dementia. Placed on observation for chest pain. Chest pain --first troponin 0.06, two pending --ECG not suggestive of acute ischemic event --CXR unremarkable --Echo ordered --NPO after midnight for possible stress --cardiology consult requested --continue ASA, Lipitor Hypertension --BP stable --continue enalapril Hyperlipidemia --continue statin IDDM --Levemir 20U qhs --Novolog sliding scale coverage Kidney stones --no acute issues BPH --continue flomax, oxybutinin Restless leg syndrome --continue Mirapex Dementia --continue Prozac, risperdal FEN Fluids: NS 500mL x 1 bag @ 50mL/hr Electrolytes: replete as indicated Nutrition: diabetic, low sodium DVT prophylaxis: subq heparin Dispo: continues to require observation. Full code. Visit type - Emergency Visit Emergency Visit: Yes ED Registration Date: 11/18/17 Care time: The patient presented to the Emergency Department on the above date and was hospitalized for further evaluation of their emergent condition. - New Patient This patient is new to me today: Yes Date on this admission: 11/19/17 - Critical Care Critical Care patient: No Hospitalist Screening - Colonoscopy Questionnaire Colonoscopy Questionnaire: Colonoscopy Questionnaire - Patient: 50 - 75 years old and never had a screening colonoscopy: Unknown History of colon or rectal polyps, or CA: No History of IBD, Crohn's disease or UC: No History of abdominal radiation therapy as a child: No - Relative: 1 with colon or rectal CA, or polyps at age 60 or younger: Unknown Colon or rectal CA diagnosed at age 45 or younger: Unknown Multiple relatives with colon or rectal CA: Unknown - Outcome: Screening Result: Negative Screen
[2017-11-18] MEDS ORDERED: SODIUM CHLORIDE 500 ML IV ONE (13:35)
--- NOTE | 2017-11-18 14:37 | CON.CARD ---
Consult Consult Specialty:: Cardiology Referred by:: Triston Reason for Consultation:: chest pain - History of Present Illness Chief Complaint: chest pain History of Present Illness: He is a 67 year-old male with a history of HTN, NIDDM, chol, kidney stones, BPH , RLS, memory lossadmitted 11/17/17 with chest pain, left sided and across chest , described as pressure like, "uncomfortable feeling," lasting for 5 minutes, without associated sob. He ascribes it to high glucose levels. FS 235 at the time. He admits to diaphoresis and nausea. No LOC. Baseline exercise tolerance is good. - History Source History Provided By: Patient, Medical Record - Alcohol/Substance Use Hx Alcohol Use: No - Smoking History Smoking history: Never smoked Have you smoked in the past 12 months: No Home Medications - Allergies Allergies/Adverse Reactions: Allergies Allergy/AdvReac Type Severity Reaction Status Date / Time No Known Allergies Allergy Verified 11/18/17 10:08 - Home Medications Home Medications: Ambulatory Orders Aspirin [Aspirin EC] 81 mg PO DAILY 11/18/17 Diphenhydramine [Benadryl -] 50 mg PO HS 11/18/17 Enalapril Maleate [Vasotec -] 10 mg PO DAILY 11/18/17 Fluoxetine HCl [Prozac -] 20 mg PO DAILY 11/18/17 Fluticasone Prop 0.05% Nasal [Flonase -] 1 - 2 spray NS DAILY 11/18/17 Insulin Aspart [Novolog] 0 unit SQ ACHS PRN 11/18/17 Insulin Glargine,Hum.rec.anlog [Basaglar Kwikpen U-100] 20 unit SQ HS 11/18/17 Metformin HCl [Glucophage] 1,000 mg PO BID 11/18/17 Omeprazole 40 mg PO DAILY 11/18/17 Oxybutynin Chloride [Oxybutynin Chloride ER] 10 mg PO DAILY 11/18/17 Pramipexole Dihydrochloride [Mirapex -] 0.25 mg PO HS 11/18/17 Pravastatin Sodium 20 mg PO DAILY 11/18/17 Risperidone [Risperdal] 1 mg PO DAILY 11/18/17 Tamsulosin HCl [Flomax] 0.4 mg PO DAILY 11/18/17 Review of Systems - Review of Systems Constitutional: reports: No Symptoms Eyes: reports: No Symptoms HENT: reports: No Symptoms Neck: reports: No Symptoms Cardiovascular: reports: Chest Pain Respiratory: reports: No Symptoms Gastrointestinal: reports: No Symptoms Genitourinary: reports: No Symptoms Musculoskeletal: reports: No Symptoms Integumentary: reports: No Symptoms Vital Signs: Vital Signs Temperature 98.2 F 11/18/17 10:09 Pulse Rate 93 H 11/18/17 12:57 Respiratory Rate 18 11/18/17 12:57 Blood Pressure 129/66 11/18/17 12:57 O2 Sat by Pulse Oximetry (%) 94 L 11/18/17 12:57 Constitutional: Yes: No Distress, Calm Eyes: Yes: Conjunctiva Clear, EOM Intact HENT: Yes: Atraumatic, Normocephalic Neck: Yes: Supple, Trachea Midline Respiratory: Yes: CTA Bilaterally Gastrointestinal: Yes: Normal Bowel Sounds, Soft Cardiovascular: Yes: Regular Rate and Rhythm JVD: No Carotid Bruit: No PMI: Non-Displaced Heart Sounds: Yes: S1, S2 Musculoskeletal: Yes: WNL Extremities: Yes: WNL Edema: No Peripheral Pulses WNL: Yes - Other Data Labs, Other Data: CBC, BMP 11/18/17 10:30 11/18/17 10:30 Troponin, BNP 11/18/17 10:30 Troponin I 0.06 H Troponin, BNP 11/18/17 10:30 Troponin I 0.06 H Imaging - Results Chest X-ray: Report Reviewed ([facility]) EKG: Report Reviewed (normal ECG) Problem List - Problems (1) Chest pain Assessment/Plan: His pain is somewhat atypical for angina. He has no evidence of ECG changes or ACS. However, he has multiple risk factors for CAD. Echo done, results pending. Stress test ordered. continue current medications. Code(s): R07.9 - CHEST PAIN, UNSPECIFIED Qualifiers: Chest pain type: precordial pain Qualified Code(s): R07.2 - Precordial pain
[2017-11-18 14:58] LABS: CHOLESTEROL 168 mg/dL (50-200); HDL CHOLESTEROL 70 mg/dl (29-89); TRIGLYCERIDES 49 mg/dL (35-160)
[2017-11-18] MEDS: HEPARIN NA (PORCINE) 5,000 UNITS/ML 1ML VIAL SQ SCH ×2 (15:19→22:08)
[2017-11-18] MEDS ORDERED: INSULIN (NOVOLOG) ASPART 100 UNITS/ML 10ML VIAL ONE (16:26)
[2017-11-18] MEDS: INSULIN SLIDING SCALE (NOVOLOG) 1 VIAL SQ SCH ×2 (16:28→22:26)
[2017-11-18] MEDS: ATORVASTATIN CA 20 MG TABLET (FP) PO SCH (22:08)
[2017-11-18] MEDS: PRAMIPEXOLE DIHYDROCHLORIDE 0.25 MG TABLET PO SCH (22:08)
[2017-11-18] MEDS: INSULIN (LEVEMIR) 100 UNITS/ML UNITS SQ SCH (22:27)
[2017-11-19] MEDS: HEPARIN NA (PORCINE) 5,000 UNITS/ML 1ML VIAL SQ SCH ×2 (06:50→14:04)
[2017-11-19] MEDS: INSULIN SLIDING SCALE (NOVOLOG) 1 VIAL SQ SCH ×4 (06:51→21:38)
[2017-11-19 07:00] LABS: BASO % 0.3 % (0-2.0); EOS % 0.4 % (0-4.5); HEMATOCRIT 39.1 % (35.4-49); HEMOGLOBIN 13.5 GM/dL (11.7-16.9); LYMPH % 11.9 % (8-40); MCH 29.8 pg (25.7-33.7); MCHC 34.5 g/dl (32.0-35.9); MEAN CELL VOLUME 86.4 fl (80-96); MEAN PLT VOLUME 9.5 fl (7.5-11.1); MONO % 7.3 % (3.8-10.2); NEUT % 80.1 % (42.8-82.8); PLATELET COUNT 165 K/MM3 (134-434); RBC 4.53 M/mm3 (4.00-5.60); RDW 13.1 % (11.9-15.9); WHITE BLOOD COUNT 8.8 K/mm3 (4.0-10.0)
[2017-11-19 07:20] LABS: CHLORIDE 100 mmol/L (98-107); POTASSIUM 4.5 mmol/L (3.5-5.1); SODIUM 137 mmol/L (136-145)
[2017-11-19 07:46] LABS: ALBUMIN 3.7 g/dl (3.4-5.0); ALK PHOS 79 U/L (45-117); ANION GAP 12 (8-16); BILIRUBIN,TOTAL 0.7 mg/dL (0.2-1.0); BLOOD UREA NITROGEN 24 mg/dL (7-18); CO2 25 mmol/L (21-32); CREATININE 1.3 mg/dL (0.7-1.3); MAGNESIUM 2.1 mg/dL (1.8-2.4); SGOT/AST 12 U/L (15-37); SGPT/ALT 18 U/L (12-78); TOT PROT 6.3 g/dl (6.4-8.2)
[2017-11-19 08:00] LABS: GLUCOSE,RANDOM 303 mg/dL (74-106)
[2017-11-19] MEDS ORDERED: REGADENOSON 0.4 MG/5 ML PRE-FILLED SYRINGE IVPUSH ONE ×2 (10:00→11:28)
[2017-11-19] MEDS ORDERED: PATIENT'S OWN MEDICATION (NON-FORMULARY) (Pravastatin Sodium [Pravastatin Sodium] 20 MG) PO SCH (10:00)
[2017-11-19] MEDS ORDERED: PATIENT'S OWN MEDICATION (NON-FORMULARY) (Omeprazole [Omeprazole] 40 MG) PO SCH (10:00)
[2017-11-19] MEDS ORDERED: PT OWN MED DRAWER 7, Y5N ONE ×3 (10:23→21:41)
[2017-11-19] MEDS: ENALAPRIL MALEATE 10 MG TABLET (FP) PO SCH (13:01)
[2017-11-19] MEDS: OXYBUTYNIN CHLORIDE 5 MG TABLET PO SCH (13:02)
[2017-11-19] MEDS: PANTOPRAZOLE 40 MG TABLET (FP) PO SCH (13:02)
[2017-11-19] MEDS: TAMSULOSIN HCL 0.4 MG CAP.ER.24H (FP) PO SCH (13:02)
[2017-11-19] MEDS: FLUoxetine HCL 20 MG CAPSULE (FP) PO SCH (13:02)
[2017-11-19] MEDS: risperiDONE 1 MG TABLET (FP) PO SCH (13:02)
[2017-11-19] MEDS: ASPIRIN COATED 81 MG TABLET.EC PO SCH (13:03)
--- NOTE | 2017-11-19 14:41 | PN ---
Progress Note, Physician Chief Complaint: Had recurrent chest pain this morning. No ecg changes tele neg History of Present Illness: He is a 67 year-old male with a history of HTN, NIDDM, chol, kidney stones, BPH , RLS, memory lossadmitted 11/17/17 with chest pain, left sided and across chest , described as pressure like, "uncomfortable feeling," lasting for 5 minutes, without associated sob. He ascribes it to high glucose levels. FS 235 at the time. He admits to diaphoresis and nausea. No LOC. Baseline exercise tolerance is good. He had recurrent cp 11/19/17. Echo 11/18/17 normal EF, trace MR, mild TR Nuclear Stress Test 11/19/17: Large area of severe intensity ischemia of the septal, apical and inferior anand. EF 57% apical HK. - Current Medication List Current Medications: Active Medications Aspirin (Ecotrin -) 81 mg PO DAILY [facility] Last Admin: 11/19/17 13:03 Dose: 81 mg Atorvastatin Calcium (Lipitor -) 20 mg PO HS [facility] Last Admin: 11/18/17 22:08 Dose: 20 mg Enalapril Maleate (Vasotec -) 10 mg PO DAILY [facility] Last Admin: 11/19/17 13:01 Dose: 10 mg Fluoxetine HCl (Prozac -) 20 mg PO DAILY [facility] Last Admin: 11/19/17 13:02 Dose: 20 mg Fluticasone Propionate (Flonase -) 1 spray NS DAILY [facility] Heparin Sodium (Porcine) (Heparin -) 5,000 unit SQ TID [facility] Last Admin: 11/19/17 14:04 Dose: 5,000 unit Insulin Aspart (Novolog Vial Sliding Scale -) 1 vial SQ [facility] PRN Reason: Protocol Last Admin: 11/19/17 12:59 Dose: 10 units Insulin Detemir (Levemir Vial) [address] [facility] Last Admin: 11/18/17 22:27 Dose: 10 units Oxybutynin Chloride (Ditropan -) 10 mg PO DAILY [facility] Last Admin: 11/19/17 13:02 Dose: 10 mg Pantoprazole Sodium (Protonix -) 40 mg PO DAILY [facility] Last Admin: 11/19/17 13:02 Dose: 40 mg Pramipexole Dihydrochloride (Mirapex -) 0.[address] [facility] Last Admin: 11/18/17 22:08 Dose: 0.25 mg Risperidone (Risperdal -) 1 mg PO DAILY [facility] Last Admin: 11/19/17 13:02 Dose: 1 mg Tamsulosin HCl (Flomax -) 0.4 mg PO DAILY@0830 [facility] Last Admin: 11/19/17 13:02 Dose: 0.4 mg - Objective Vital Signs: Vital Signs Temperature 98.9 F 11/19/17 09:00 Pulse Rate 72 11/19/17 13:36 Respiratory Rate 18 11/19/17 13:36 Blood Pressure 157/87 11/19/17 13:36 O2 Sat by Pulse Oximetry (%) 96 11/19/17 13:36 Constitutional: Yes: No Distress, Calm Eyes: Yes: Conjunctiva Clear, EOM Intact HENT: Yes: Atraumatic, Normocephalic Neck: Yes: Trachea Midline Cardiovascular: Yes: Regular Rate and Rhythm Respiratory: Yes: CTA Bilaterally Gastrointestinal: Yes: Normal Bowel Sounds, Soft Musculoskeletal: Yes: WNL Extremities: Yes: WNL Edema: No Peripheral Pulses WNL: Yes Labs: CBC, BMP 11/19/17 05:52 11/19/17 05:52 Problem List - Problems (1) Chest pain Assessment/Plan: He has had recurrent chest pain with a high risk stress test and large area of ischemia in more than one vascular territory. Plan is to transfer to [facility] for cardiac catheterization tomorrow. Explained to patient. Code(s): R07.9 - CHEST PAIN, UNSPECIFIED Qualifiers: Chest pain type: precordial pain Qualified Code(s): R07.2 - Precordial pain
--- NOTE | 2017-11-19 15:16 | EKG ---
Test Reason : Blood Pressure : / mmHG Vent. Rate : 084 BPM Atrial Rate : 084 BPM P-R Int : 164 ms QRS Dur : 082 ms QT Int : 382 ms P-R-T Axes : 060 050 049 degrees QTc Int : 451 ms NORMAL SINUS RHYTHM WITH SINUS ARRHYTHMIA NORMAL ECG WHEN COMPARED WITH ECG OF 12-NOV-2017 13:14, NO SIGNIFICANT CHANGE WAS FOUND Confirmed by AMY YUAN MD ([id number]) on 11/19/2017 3:16:32 PM Referred By: Katie LONG Confirmed By:AMY YUAN MD
--- NOTE | 2017-11-19 16:09 | DS ---
Physical Exam: SUBJECTIVE: Patient seen and examined. Had chest pain earlier today. OBJECTIVE: Vital Signs Period Temp Pulse Resp BP Sys/Velasco Pulse Ox Last 24 Hr 98.0 F-98.9 F 72-110 18-20 113-157/71-87 94-96 PHYSICAL EXAM GENERAL: The patient is awake, alert, and fully oriented, in no acute distress. LUNGS: Breath sounds equal, clear to auscultation bilaterally, no wheezes, no crackles, no accessory muscle use. HEART: Regular rate and rhythm, S1, S2 ABDOMEN: Soft, nontender, nondistended, normoactive bowel sounds, no guarding, no rebound EXTREMITIES: 2+ pulses, warm, well-perfused, no edema. NEUROLOGICAL: Cranial nerves II through XII grossly intact. Normal speech, gait not observed. LABS Laboratory Results - last 24 hr 11/18/17 11/18/17 11/18/17 16:23 16:40 21:30 WBC RBC Hgb Hct MCV MCH MCHC RDW Plt Count MPV Neutrophils % Lymphocytes % Monocytes % Eosinophils % Basophils % Sodium Potassium Chloride Carbon Dioxide Anion Gap BUN Creatinine Creat Clearance w eGFR POC Glucometer 393 Random Glucose Calcium Magnesium Total Bilirubin AST ALT Alkaline Phosphatase Troponin I 0.06 H 0.06 H Total Protein Albumin 11/18/17 11/19/17 11/19/17 22:11 05:50 05:52 WBC 8.8 RBC 4.53 Hgb 13.5 Hct 39.1 MCV 86.4 MCH 29.8 MCHC 34.5 RDW 13.1 Plt Count 165 MPV 9.5 Neutrophils % 80.1 Lymphocytes % 11.9 D Monocytes % 7.3 Eosinophils % 0.4 Basophils % 0.3 Sodium Potassium Chloride Carbon Dioxide Anion Gap BUN Creatinine Creat Clearance w eGFR POC Glucometer 470 285 Random Glucose Calcium Magnesium Total Bilirubin AST ALT Alkaline Phosphatase Troponin I Total Protein Albumin 11/19/17 11/19/17 11/19/17 05:52 12:45 12:46 WBC RBC Hgb Hct MCV MCH MCHC RDW Plt Count MPV Neutrophils % Lymphocytes % Monocytes % Eosinophils % Basophils % Sodium 137 Potassium 4.5 Chloride 100 Carbon Dioxide 25 Anion Gap 12 BUN 24 H Creatinine 1.3 Creat Clearance w eGFR 54.73 POC Glucometer 414 395 Random Glucose 303 H* D Calcium 9.0 Magnesium 2.1 Total Bilirubin 0.7 AST 12 L D ALT 18 Alkaline Phosphatase 79 Troponin I Total Protein 6.3 L Albumin 3.7 HOSPITAL COURSE: Date of Admission:11/18/17 Date of Discharge: 11/19/17 Pre hospital course 67 year-old male with a PMH significant for HTN, HLD, IDDM, kidney stones, BPH, restless leg syndrome, and dementia, brought in by EMS, who presents to the emergency department for evaluation of chest pain. The patient reports an episode of left-sided chest pain beginning at 6am. He describes the pain as non- radiating, "uncomfortable feeling," lasting for 5 minutes. He reports associated symptoms of diaphoresis, headache, nausea, dizziness, and dyspnea. Patient denies fevers, chills, vomiting, diarrhea, and constipation. Denies dysuria, frequency, urgency, and hematuria. Fingerstick by EMS in the field was 230. ER course was notable for: (1) Troponin 0.06, two pending (2) ECG sinus rhythm @ 80bpm (3) CXR unremarkable Subsequent hospital course by problem list Chest pain --troponins 0.6-->0.6 --ECGs not suggestive of acute ischemic event --CXR unremarkable --Echo: LV normal; RV normal; trace MR; trace TR --Persantine stress: large-sized severe-intensity septal, apical, and inferior wall reversible perfusion defect c/w ischemia; apical hypokinesis; EF 57% --ASA, Lipitor; ranolazine BID; nitro SL PRN --plan is to transfer to [facility] for cardiac catheterization tomorrow. Hypertension --BP stable --continued enalapril Hyperlipidemia --continued Lipitor IDDM --Levemir 20U qhs --Novolog sliding scale coverage Kidney stones --no acute issues BPH --continued flomax, oxybutinin Restless leg syndrome --continued Mirapex Dementia --continued Prozac, risperdal Minutes to complete discharge: 35 Discharge Summary Reason For Visit: CHEST PAIN Current Active Problems Chest pain (Acute) Condition: Stable - Instructions Referrals: Neymar Decker MD [Primary Care Provider] - - Home Medications Comprehensive Discharge Medication List: Ambulatory Orders Aspirin [Aspirin EC] 81 mg PO DAILY 11/12/17 Enalapril Maleate [Vasotec -] 10 mg PO DAILY 11/12/17 Fluoxetine HCl [Prozac] 20 mg PO DAILY 11/12/17 Fluticasone Prop 0.05% Nasal [Flonase -] 1 - 2 spray NS DAILY 11/12/17 Omeprazole 40 mg PO DAILY 11/12/17 Oxybutynin Chloride [Oxybutynin Chloride ER] 10 mg PO DAILY 11/12/17 Pramipexole Di-HCl [Mirapex] 0.25 mg PO DAILY 11/12/17 Pravastatin Sodium 20 mg PO DAILY 11/12/17 Repaglinide [Prandin -] 2 mg PO DAILY 11/12/17 Risperidone [Risperdal] 1 mg PO DAILY 11/12/17 Tamsulosin HCl [Flomax] 0.4 mg PO DAILY 11/12/17 Insulin Glargine,Hum.rec.anlog [Basaglar Kwikpen U-100] 20 unit SQ AM #1 insuln.pen 11/13/17 Aspirin [Aspirin EC] 81 mg PO DAILY 11/18/17 Diphenhydramine [Benadryl -] 50 mg PO HS 11/18/17 Enalapril Maleate [Vasotec -] 10 mg PO DAILY 11/18/17 Fluoxetine HCl [Prozac -] 20 mg PO DAILY 11/18/17 Fluticasone Prop 0.05% Nasal [Flonase -] 1 - 2 spray NS DAILY 11/18/17 Insulin Aspart [Novolog] 0 unit SQ ACHS PRN 11/18/17 Insulin Glargine,Hum.rec.anlog [Basaglar Kwikpen U-100] 20 unit SQ HS 11/18/17 Metformin HCl [Glucophage] 1,000 mg PO BID 11/18/17 Omeprazole 40 mg PO DAILY 11/18/17 Oxybutynin Chloride [Oxybutynin Chloride ER] 10 mg PO DAILY 11/18/17 Pramipexole Dihydrochloride [Mirapex -] 0.25 mg PO HS 11/18/17 Pravastatin Sodium 20 mg PO DAILY 11/18/17 Risperidone [Risperdal] 1 mg PO DAILY 11/18/17 Tamsulosin HCl [Flomax] 0.4 mg PO DAILY 11/18/17 This patient is new to me today: No Emergency Visit: Yes ED Registration Date: 11/18/17 Care time: The patient presented to the Emergency Department on the above date and was hospitalized for further evaluation of their emergent condition. Critical Care patient: No - Discharge Referral Referred to [facility] Med [facility].: No
[2017-11-19] MEDS ORDERED: NITROGLYCERIN SUBLINGUAL 1/150 0.4 MG TAB SL PRN (16:10)
[2017-11-19] MEDS: ATORVASTATIN CA 20 MG TABLET (FP) PO SCH (21:38)
[2017-11-19] MEDS: RANOLAZINE E.R. 500 MG TABLET (FP) PO SCH (21:38)
[2017-11-19] MEDS: FLUTICASONE PROP 0.05% 16 GM NASAL SPRAY NS SCH (21:38)
[2017-11-19] MEDS: INSULIN (LEVEMIR) 100 UNITS/ML UNITS SQ SCH (21:49)
[2017-11-19] MEDS ORDERED: METOPROLOL TARTRATE 25 MG TABLET (FP) PO SCH (22:00)
[2017-11-19] MEDS ORDERED: HEPARIN NA (PORCINE) 5,000 UNITS/ML 1ML VIAL SQ ONE (22:00)
[2017-11-19] MEDS: PRAMIPEXOLE DIHYDROCHLORIDE 0.25 MG TABLET PO SCH (23:18)
[2017-11-20] MEDS: INSULIN SLIDING SCALE (NOVOLOG) 1 VIAL SQ SCH ×2 (06:37→12:12)
[2017-11-20] MEDS ORDERED: PT OWN MED DRAWER 7, Y5N ONE (10:02)
[2017-11-20] MEDS: ENALAPRIL MALEATE 10 MG TABLET (FP) PO SCH (10:05)
[2017-11-20] MEDS: OXYBUTYNIN CHLORIDE 5 MG TABLET PO SCH (10:06)
[2017-11-20] MEDS: TAMSULOSIN HCL 0.4 MG CAP.ER.24H (FP) PO SCH (10:06)
[2017-11-20] MEDS: FLUoxetine HCL 20 MG CAPSULE (FP) PO SCH (10:07)
[2017-11-20] MEDS: RANOLAZINE E.R. 500 MG TABLET (FP) PO SCH (10:07)
[2017-11-20] MEDS: PANTOPRAZOLE 40 MG TABLET (FP) PO SCH (10:07)
[2017-11-20] MEDS: ASPIRIN COATED 81 MG TABLET.EC PO SCH (10:07)
[2017-11-20] MEDS: risperiDONE 1 MG TABLET (FP) PO SCH (10:09)
--- NOTE | 2017-11-20 10:17 | PN ---
Progress Note, Physician History of Present Illness: pt seen and examined today in nad. denies any new complaints. planned for transfer for cardiac cath today. - Current Medication List Current Medications: Active Medications Aspirin (Ecotrin -) 81 mg PO DAILY [facility] Last Admin: 11/20/17 10:07 Dose: 81 mg Atorvastatin Calcium (Lipitor -) 20 mg PO HS [facility] Last Admin: 11/19/17 21:38 Dose: 20 mg Enalapril Maleate (Vasotec -) 10 mg PO DAILY [facility] Last Admin: 11/20/17 10:05 Dose: Not Given Fluoxetine HCl (Prozac -) 20 mg PO DAILY [facility] Last Admin: 11/20/17 10:07 Dose: 20 mg Fluticasone Propionate (Flonase -) 1 spray NS DAILY [facility] Last Admin: 11/19/17 21:38 Dose: 1 spray Insulin Aspart (Novolog Vial Sliding Scale -) 1 vial SQ ACHS [facility] PRN Reason: Protocol Last Admin: 11/20/17 06:37 Dose: Not Given Insulin Detemir (Levemir Vial) 20 units SQ HS [facility] Last Admin: 11/19/17 21:49 Dose: 20 units Nitroglycerin (Nitrostat -) 0.4 mg SL Q5M PRN PRN Reason: FOR CHEST PAIN Oxybutynin Chloride (Ditropan -) 10 mg PO DAILY [facility] Last Admin: 11/20/17 10:06 Dose: 10 mg Pantoprazole Sodium (Protonix -) 40 mg PO DAILY [facility] Last Admin: 11/20/17 10:07 Dose: 40 mg Pramipexole Dihydrochloride (Mirapex -) 0.25 mg PO [facility] Last Admin: 11/19/17 23:18 Dose: 0.25 mg Ranolazine (Ranexa -) 500 mg PO BID [facility] Last Admin: 11/20/17 10:07 Dose: 500 mg Risperidone (Risperdal -) 1 mg PO DAILY [facility] Last Admin: 11/20/17 10:09 Dose: 1 mg Tamsulosin HCl (Flomax -) 0.4 mg PO DAILY@0830 [facility] Last Admin: 11/20/17 10:06 Dose: 0.4 mg - Objective Vital Signs: Vital Signs Temperature 99 F 11/20/17 02:00 Pulse Rate 91 H 11/20/17 06:00 Respiratory Rate 20 11/20/17 06:00 Blood Pressure 106/67 11/20/17 06:00 O2 Sat by Pulse Oximetry (%) 94 L 11/19/17 21:00 Constitutional: Yes: Well Nourished, No Distress, Calm Eyes: Yes: WNL, Conjunctiva Clear, EOM Intact, PERRL HENT: Yes: WNL, Atraumatic, Normocephalic Neck: Yes: WNL, Supple, Trachea Midline Cardiovascular: Yes: WNL, Regular Rate and Rhythm, S1, S2. No: Bradycardia, Tachycardia, Pulse Irregular, Bruit, JVD, Gallop, Murmur, Rub, S3, S4, Varicosities Respiratory: Yes: WNL, Regular, CTA Bilaterally. No: Rales, Rhonchi, Wheezes Gastrointestinal: Yes: WNL, Normal Bowel Sounds, Soft. No: Distention, Tenderness Musculoskeletal: Yes: WNL Extremities: Yes: WNL Edema: No Peripheral Pulses WNL: Yes Peripheral Pulses: Left Doralis Pedis: 2+, Right Dorsalis Pedis: 2+ Integumentary: Yes: WNL Wound/Incision: Yes: Other Neurological: Yes: WNL, Alert, Oriented ...Motor Strength: WNL Psychiatric: Yes: WNL, Alert, Oriented Labs: CBC, BMP 11/19/17 05:52 11/19/17 05:52 - ....Imaging Chest X-ray: Report Reviewed, Image Reviewed EKG: Report Reviewed, Image Reviewed Other: Report Reviewed, Image Reviewed (tele-sinus tach) Assessment/Plan Chest pain with high risk stress test -plan for transfer today to [facility] for cardiac catheterization -reviewed procedure with pt and answered all questions, he is in agreement
[2017-11-20 10:29] VITALS: BP 100/46; PULSE 78; TEMP 98
[2017-11-20] MEDS: FLUTICASONE PROP 0.05% 16 GM NASAL SPRAY NS SCH (11:08)
== END 2017-11-20 13:32 | disposition short-term general hospital (02) ==
LOC: JER 09:58 → INTOOBSV 11:55 → JERBED 11:55 → MERGE 11:55 → J4W 13:38
PROVIDERS: ADMIT Internal Medicine; ATTEND Nurse Practitioner Acute Care
PROC: 3E033GC Introduction of Other Therapeutic Substance into Peripheral Vein, Percutaneous Approach (ICD-10-PCS; principal; 2017-11-18)
PROC: 3E0337Z Introduction of Electrolytic and Water Balance Substance into Peripheral Vein, Percutaneous Approach (ICD-10-PCS; 2017-11-18)
PROC: 3E013VG Introduction of Insulin into Subcutaneous Tissue, Percutaneous Approach (ICD-10-PCS; 2017-11-18)
PROC: 3E013GC Introduction of Other Therapeutic Substance into Subcutaneous Tissue, Percutaneous Approach (ICD-10-PCS; 2017-11-18)
DX: R07.2 Precordial pain (principal); R07.9 Chest pain, unspecified; I10 Essential (primary) hypertension; E11.9 Type 2 diabetes mellitus without complications; E78.5 Hyperlipidemia, unspecified; N40.0 Benign prostatic hyperplasia without lower urinary tract symptoms; G25.81 Restless legs syndrome; G30.9 Alzheimer's disease, unspecified; F02.80 Dementia in other diseases classified elsewhere, unspecified severity, without behavioral disturbance, psychotic disturbance, mood disturbance, and anxiety; Z79.4 Long term (current) use of insulin; Z79.82 Long term (current) use of aspirin; Z79.84 Long term (current) use of oral hypoglycemic drugs; Z87.442 Personal history of urinary calculi
CPT/HCPCS: 36415; 71045-TC-FY; 78452-TC; 80053; 80061; 82962; 83036; 83721; 83735; 84443; 84484; 85025; 93005; 93010; 93017; 93306-TC; 96361; 96372; 96374; 99283-25; A9502; G0378; J1644; J2785; J2794

== ENCOUNTER 2017-11-27 10:07 | Inpatient (IN) | payer OTHER ==
[2017-11-27] MEDS ORDERED: SODIUM CHLORIDE 1,000 ML IV ONE (10:29)
--- NOTE | 2017-11-27 10:39 | PDOC ---
History of Present Illness <Gm Hahn - Last Filed: 11/27/17 12:47> - General History Source: Patient, Family Exam Limitations: No Limitations - History of Present Illness Initial Comments: 11/27/17 11:00 The patient is a 67 year old male, with a significant PMH of hypertension, hyperlipidemia, kidney stones, benign prostatic hyperplasia, diabetes, restless leg syndrome, alzheimers and dementia who presents to the emergency department with 4-5 days of frequent urination and generalized weakness beginning this morning. The patient states that 2 weeks ago he was switched to another Insulin by his PMD Dr. Neymar Decker. The patient reports that 3 days ago he meet with Dr. Neymar Decker at his office and stopped the Insulin and was switched to Actos. The patient states he woke up this morning feeling very weak and vomited 4x (non bloody, non bilious). The patient also reports he was recently admitted to [facility] on 11/18 and discharged to [facility] on 11/19 for a stent placement. The patient denies chest pain, shortness of breath, headache and dizziness. Denies fever, chills, diarrhea and constipation. Denies dysuria, urgency and hematuria. Allergies: NKA Past surgical history: kidney stone removal, stent placement at [facility] Social history: No reported PCP: Dr. Neymar Decker <James Starkey - Last Filed: 11/27/17 15:30> - General Chief Complaint: Blood Sugar Problem Stated Complaint: Blood Sugar Problem Time Seen by Provider: 11/27/17 10:28 Past History - Past Medical History Anemia: No Asthma: No Cancer: No Cardiac Disorders: Yes CVA: No COPD: No CHF: No Dementia: Yes Diabetes: Yes GI Disorders: No Disorders: Yes (Renal stones/Lithotripsy) HTN: Yes Hypercholesterolemia: Yes Kidney Stones: Yes Liver Disease: No Seizures: No Thyroid Disease: No - Suicide/Smoking/Psychosocial Hx Smoking History: Never smoked Have you smoked in the past 12 months: No Information on smoking cessation initiated: No Hx Alcohol Use: No Drug/Substance Use Hx: No Substance Use Type: None Hx Substance Use Treatment: No <Gm Hahn - Last Filed: 11/27/17 12:47> <James Starkey - Last Filed: 11/27/17 15:30> - Past Medical History Allergies/Adverse Reactions: Allergies Allergy/AdvReac Type Severity Reaction Status Date / Time No Known Drug Allergies Allergy Verified 11/27/17 10:22 Home Medications: Ambulatory Orders Aspirin [Aspirin EC] 0 mg PO DAILY 11/27/17 Atorvastatin Ca [Lipitor] 0 mg PO HS 11/27/17 Enalapril Maleate [Vasotec] 10 mg PO DAILY 11/27/17 Fluoxetine HCl [Prozac -] 20 mg PO DAILY 11/27/17 Metoprolol Succinate [Toprol Xl] 0 mg PO ASDIR 11/27/17 Omeprazole 40 mg PO DAILY 11/27/17 Pioglitazone HCl [Actos] 30 mg PO DAILY 11/27/17 Pramipexole Di-HCl [Mirapex] 0.25 mg PO DAILY 11/27/17 Repaglinide [Prandin -] 1 mg PO TID 11/27/17 Tamsulosin HCl [Flomax] 0.4 mg PO DAILY 11/27/17 Ticagrelor [Brilinta] 0 mg PO ASDIR 11/27/17 Review of Systems - Review of Systems Constitutional: No: Chills, Fever Respiratory: No: Cough, Shortness of Breath Cardiac (ROS): Yes: Lightheadedness. No: Chest Pain, Edema, Syncope ABD/GI: Yes: Nausea, Vomiting. No: Diarrhea Neurological: No: Headache, Ataxia All Other Systems: Reviewed and Negative <Gm Hahn - Last Filed: 11/27/17 12:47> *Physical Exam - Vital Signs Last Vital Signs Temp Pulse Resp BP Pulse Ox 97.9 F 88 20 123/59 96 11/27/17 10:19 11/27/17 10:19 11/27/17 10:19 11/27/17 10:19 11/27/17 10:19 <Gm Hahn - Last Filed: 11/27/17 12:47> - Vital Signs Last Vital Signs Temp Pulse Resp BP Pulse Ox 97.9 F 88 20 123/59 96 11/27/17 10:19 11/27/17 10:19 11/27/17 10:19 11/27/17 10:19 11/27/17 10:19 - Physical Exam Comments: 11/27/17 11:01 GENERAL: The patient is awake, alert, and fully oriented, in no acute distress. HEAD: Normal with no signs of trauma. EYES: Pupils equal, round and reactive to light, extraocular movements intact, sclera anicteric, conjunctiva clear with no pallor. ENT: Ears normal, nares patent, oropharynx clear without exudates. Moist mucous membranes. NECK: Normal range of motion, supple without lymphadenopathy, JVD, or masses. LUNGS: Breath sounds equal, clear to auscultation bilaterally. No wheeze/ crackles. HEART: Regular rate and rhythm, normal S1 and S2 without murmur or rub. ABDOMEN: Soft/nontender/nondistended. BS wnl. No guarding or rebound. No palpable masses. No hepatosplenomegaly. EXTREMITIES: (+) Right radial artery puncture site from catheterization, site is clean and dry. Normal range of motion, no edema. No clubbing or cyanosis. No cords, erythema, or tenderness. NEUROLOGICAL: Cranial nerves II through XII grossly intact. Normal speech, normal gait. PSYCH: Normal mood, normal affect. SKIN: Warm, Dry, normal turgor, no rashes or lesions noted. <James Starkey - Last Filed: 11/27/17 15:30> Heart Score/ECG Review #1 ECG reviewed & interpreted by me at: 10:13 General ECG Interpretation: Sinus Rhythm, Normal Rate (83), Normal Intervals ( qtc 439), No acute ischemic changes <Gm Hahn - Last Filed: 11/27/17 12:47> ED Treatment Course - LABORATORY CBC & Chemistry Diagram: 11/27/17 11:10 11/27/17 11:10 <Gm Hahn - Last Filed: 11/27/17 12:47> - LABORATORY CBC & Chemistry Diagram: 11/27/17 11:10 11/27/17 11:10 - RADIOLOGY Radiograph Interpretation: 11/27/17 15:30 EXAM#: TYPE/EXAM: RESULT: [id number] RAD/CHEST X-RAY PORTABLE* AP portable chest: Diabetic ketoacidosis Imaging reveals clear lungs, normal mediastinum. The bones and soft tissues are intact. Since 2017, there is no change of an adverse nature. Impression: No acute pathology. No significant change. Reported By: Jonathon Clarke MD <James Starkey - Last Filed: 11/27/17 15:30> Medical Decision Making - Critical Care Time Total Critical Care Time (minutes): 50 Critical Care Statement: The care of this patient involved high complexity decision making to prevent further life threatening deterioration of the patient 's condition and/or to evaluate & treat vital organ system(s) failure or risk of failure. - Medical Decision Making 11/27/17 11:28 67y/o M h/o CAD with recent stent placement, IDDM with recent changes to her insulin, changed mediation about 2 weeks ago, then insulin d/c'd 3d ago and transition to Actos, now p/w generalized weakness this morning and elevated glucose at PMD office. 4 episodes nbnb emesis, recent polyuria for days but no dysuria. VSS well appearing dry mucosa heart, lungs, abd benign neuro nonfocal 67y/o M IDDM currently off insulin for 3d p/w generalized weakness and hyperglycemia today. r/o dka, no focal infectious etiology on history/exam. labs, vbg, acetone ivf, received insulin in PMD office reassess, dispo with PMD Dr. Neymar Decker 11/27/17 12:20 wbc slightly elevated. chem notable for PIA with Cr 2.2, AG 21, normal K, trop elevated at 0.4, pH 7.2. consistent with DKA, PIA, possible nstemi. continue IVF, start insulin drip, will give asa. admit ICU, calls placed to group director and hospitalist 11/27/17 12:47 accepted [address] ICU by Dr. Vivar. Accepted for admission by Dr. Jeffery, signout given to YAKOV Goldstein. <Gm Hahn - Last Filed: 11/27/17 12:47> - Medical Decision Making 11/27/17 12:[address] Vivar at 12:18 pm. Case discussed. <James Starkey - Last Filed: 11/27/17 15:30> *DC/Admit/Observation/Transfer - Discharge Dispostion Decision to Admit order: Yes <Gm Hahn - Last Filed: 11/27/17 12:47> - Attestations Scribe Attestion: 11/27/17 11:01 Documentation prepared by James Starkey, acting as program medical director for Gm Hahn MD. <James Starkey - Last Filed: 11/27/17 15:30> Diagnosis at time of Disposition: Hyperglycemia, Acute renal insufficiency DKA (diabetic ketoacidoses) Qualifiers: Diabetes mellitus type: type 2 Diabetes mellitus complication detail: without coma Qualified Code(s): E11.10 - Type 2 diabetes mellitus with ketoacidosis without coma - Discharge Dispostion Condition at time of disposition: Guarded
[2017-11-27 11:21] LABS: VENOUS PC02 42.2 mmHg (38-52); VENOUS PH 7.24 (7.32-7.42); VENOUS PO2 22.9 mmHg (28-48)
[2017-11-27 11:26] LABS: URINE APPEARANCE CLEAR; URINE BILIRUBIN NEGATIVE (<2.0 mg/dL); URINE COLOR LTYELLOW; URINE GLUCOSE (UA) 3+ (NEGATIVE); URINE KETONE 1+ (NEGATIVE); URINE LEUK ESTERASE NEGATIVE (NEGATIVE); URINE NITRITE NEGATIVE (NEGATIVE); URINE PROTEIN NEGATIVE (NEGATIVE); URINE UROBILINOGEN NEGATIVE mg/dL (0.2-1.0)
[2017-11-27 11:33] LABS: BASO % 0.2 % (0-2.0); HEMATOCRIT 45.1 % (35.4-49); HEMOGLOBIN 14.6 GM/dL (11.7-16.9); LYMPH % 1.5 % (8-40); MCH 28.8 pg (25.7-33.7); MCHC 32.5 g/dl (32.0-35.9); MEAN CELL VOLUME 88.7 fl (80-96); MEAN PLT VOLUME 10.8 fl (7.5-11.1); MONO % 2.3 % (3.8-10.2); PLATELET COUNT 200 K/MM3 (134-434); RBC 5.08 M/mm3 (4.00-5.60); RDW 13.2 % (11.9-15.9); WHITE BLOOD COUNT 11.7 K/mm3 (4.0-10.0)
[2017-11-27 11:43] LABS: ALBUMIN 4.2 g/dl (3.4-5.0); ANION GAP 21 (8-16); BLOOD UREA NITROGEN 40 mg/dL (7-18); CALCIUM 9.2 mg/dL (8.5-10.1); CHLORIDE 96 mmol/L (98-107); CO2 17 mmol/L (21-32); CREATININE 2.2 mg/dL (0.7-1.3); LIPASE 66 U/L (73-393); POTASSIUM 4.4 mmol/L (3.5-5.1); SGPT/ALT 48 U/L (12-78); SODIUM 134 mmol/L (136-145); TOT PROT 7.4 g/dl (6.4-8.2)
[2017-11-27 11:46] LABS: ALK PHOS 84 U/L (45-117); BILIRUBIN,TOTAL 0.8 mg/dL (0.2-1.0); SGOT/AST 13 U/L (15-37)
[2017-11-27 11:54] LABS: GLUCOSE,RANDOM 503 mg/dL (74-106)
[2017-11-27] MEDS ORDERED: INSULIN REGULAR HUMAN 100 UNITS/ML *VIAL IVPUSH ONE (12:10)
[2017-11-27] MEDS ORDERED: INSULIN REGULAR 100 UNITS in SODIUM CHLORIDE 99 ML IVPB SCH ×2 (12:15→19:30)
[2017-11-27] MEDS ORDERED: ASPIRIN 325 MG TABLET PO ONE (12:23)
[2017-11-27] MEDS ORDERED: SODIUM CHLORIDE 2,000 ML IV ONE (12:24)
[2017-11-27] MEDS ORDERED: ASPIRIN 325 MG TABLET ONE (12:36)
[2017-11-27] MEDS ORDERED: INSULIN REGULAR HUMAN 100 UNITS/ML *VIAL ONE (12:36)
--- NOTE | 2017-11-27 12:47 | HP ---
CHIEF COMPLAINT: Fatigue, weakness PCP: Dr. Neymar Decker HISTORY OF PRESENT ILLNESS: 67 year-old male with a PMH significant for HTN, HLD, IDDM, kidney stones, BPH, restless leg syndrome, and dementia. Hospitalized at [facility] on 11/18/17 for chest pain, had a positive stress test, and was transferred on 11/19 to [facility] for cardiac catheterization and a stent was placed on 11/20/17. Patient came to the ED today for profound weakness. He reports changes to his insulin regimen over the past two weeks by his PCP. About two weeks ago, the PCP changed the type of insulin the patient was taking. Three days ago, the PCP stopped all insulin and transitioned patient to Actos. This morning the patient awoke feeling very weak and had four episodes of vomiting. He has also been experiencing frequent urination x 4-5 days. Patient denies chest pain, palpitations, SOB, LARSEN, orthopnea, leg swelling, or any other cardiac symptoms. He denies fever, sweats, chills. Denies dysuria, urgency, hematuria. ER course was notable for: (1) HCO3 17, AG 21, Glucose 503, corrected Na 140, K 4.4 (2) BUN 40 Cr 2.2 (3) Trop 0.04 Recent Travel: No PAST MEDICAL HISTORY: Hypertension Hyperlipidemia Coronary artery disease IDDM Kidney stones BPH Restless leg symdrome Dementia PAST SURGICAL HISTORY: Cardiac stent placement (11/2017, [facility]) Kidney stone removal/lithotripsy Social History: Smoking: no Alcohol: no Drugs: no Family History: Allergies No Known Drug Allergies Allergy (Verified 11/27/17 10:22) HOME MEDICATIONS: Home Medications Medication Instructions Recorded Aspirin [Aspirin EC] 0 mg PO DAILY 11/27/17 Atorvastatin Ca [Lipitor] 0 mg PO HS 11/27/17 Enalapril Maleate [Vasotec] 10 mg PO DAILY 11/27/17 Fluoxetine HCl [Prozac -] 20 mg PO DAILY 11/27/17 Metoprolol Succinate [Toprol Xl] 0 mg PO ASDIR 11/27/17 Omeprazole 40 mg PO DAILY 11/27/17 Pioglitazone HCl [Actos] 30 mg PO DAILY 11/27/17 Pramipexole Di-HCl [Mirapex] 0.25 mg PO DAILY 11/27/17 Repaglinide [Prandin -] 1 mg PO TID 11/27/17 Tamsulosin HCl [Flomax] 0.4 mg PO DAILY 11/27/17 Ticagrelor [Brilinta] 0 mg PO ASDIR 11/27/17 REVIEW OF SYSTEMS CONSTITUTIONAL: Absent: fever, chills, diaphoresis, generalized weakness, malaise, loss of appetite, weight change HEENT: Absent: rhinorrhea, nasal congestion, throat pain, throat swelling, difficulty swallowing, mouth swelling, ear pain, eye pain, visual changes CARDIOVASCULAR: Absent: chest pain, syncope, palpitations, irregular heart rate, lightheadedness , peripheral edema RESPIRATORY: Absent: cough, shortness of breath, dyspnea with exertion, orthopnea, wheezing, stridor, hemoptysis GASTROINTESTINAL: Absent: abdominal pain, abdominal distension, nausea, vomiting, diarrhea, constipation, melena, hematochezia GENITOURINARY: Absent: dysuria, frequency, urgency, hesitancy, hematuria, flank pain, genital pain MUSCULOSKELETAL: Absent: myalgia, arthralgia, joint swelling, back pain, neck pain SKIN: Absent: rash, itching, pallor HEMATOLOGIC/IMMUNOLOGIC: Absent: easy bleeding, easy bruising, lymphadenopathy, frequent infections ENDOCRINE: +weakness, vomiting, polyuria, polydipsia Absent: unexplained weight gain, unexplained weight loss, heat intolerance, cold intolerance NEUROLOGIC: Absent: headache, focal weakness or paresthesias, dizziness, unsteady gait, seizure, mental status changes, bladder or bowel incontinence PSYCHIATRIC: Absent: anxiety, depression, suicidal or homicidal ideation, hallucinations. PHYSICAL EXAMINATION Vital Signs - 24 hr 11/27/17 10:19 Temperature 97.9 F Pulse Rate 88 Respiratory 20 Rate Blood Pressure 123/59 O2 Sat by Pulse 96 Oximetry (%) GENERAL: Awake, alert, and fully oriented, in no acute distress. HEAD: Normal with no signs of trauma. EYES: Pupils equal, round and reactive to light, extraocular movements intact, sclera anicteric, conjunctiva clear. EARS, NOSE, THROAT: Ears normal, nares patent, oropharynx clear without exudates. Moist mucous membranes. NECK: Normal range of motion, supple without lymphadenopathy, JVD, or masses. LUNGS: Breath sounds equal, clear to auscultation bilaterally. No wheezes, and no crackles. No accessory muscle use. HEART: Regular rate and rhythm, normal S1 and S2 ABDOMEN: Soft, nontender, not distended, normoactive bowel sounds, no guarding, no rebound, no masses MUSCULOSKELETAL: Normal range of motion at all joints. No bony deformities or tenderness. No CVA tenderness. UPPER EXTREMITIES: 2+ pulses, warm, well-perfused. No cyanosis. No clubbing. No peripheral edema. LOWER EXTREMITIES: 2+ pulses, warm, well-perfused. No calf tenderness. No peripheral edema. NEUROLOGICAL: Cranial nerves II-XII intact. Normal speech. Laboratory Results - last 24 hr 11/27/17 11/27/17 11/27/17 10:17 11:10 11:10 WBC 11.7 H D RBC 5.08 Hgb 14.6 Hct 45.1 D MCV 88.7 MCH 28.8 MCHC 32.5 RDW 13.2 Plt Count 200 D MPV 10.8 D Neutrophils % 96.0 H Lymphocytes % 1.5 L D Monocytes % 2.3 L Eosinophils % 0.0 D Basophils % 0.2 Nucleated RBC % 0 VBG pH POC VBG pCO2 POC VBG pO2 Mixed VBG HCO3 Sodium Potassium Chloride Carbon Dioxide Anion Gap BUN Creatinine Creat Clearance w eGFR POC Glucometer > 400 Random Glucose Calcium Total Bilirubin AST ALT Alkaline Phosphatase Creatine Kinase Troponin I Total Protein Albumin Lipase Urine Color Ltyellow Urine Appearance Clear Urine pH 5.0 Ur Specific [place] 1.023 Urine Protein Negative Urine Glucose (UA) 3+ H Urine Ketones 1+ H Urine Blood Negative Urine Nitrite Negative Urine Bilirubin Negative Urine Urobilinogen Negative Ur Leukocyte Esterase Negative 11/27/17 11/27/17 11/27/17 11:10 11:10 11:10 WBC RBC Hgb Hct MCV MCH MCHC RDW Plt Count MPV Neutrophils % Lymphocytes % Monocytes % Eosinophils % Basophils % Nucleated RBC % VBG pH 7.24 L* POC VBG pCO2 42.2 POC VBG pO2 22.9 L Mixed VBG HCO3 17.4 L Sodium 134 L Potassium 4.4 Chloride 96 L Carbon Dioxide 17 L D Anion Gap 21 H BUN 40 H D Creatinine 2.2 H D Creat Clearance w eGFR 29.83 POC Glucometer Random Glucose 503 H* D Calcium 9.2 Total Bilirubin 0.8 AST 13 L ALT 48 D Alkaline Phosphatase 84 Creatine Kinase 65 Troponin I 0.42 H D Total Protein 7.4 Albumin 4.2 Lipase 66 L Cancelled Urine Color Urine Appearance Urine pH Ur Specific [place] Urine Protein Urine Glucose (UA) Urine Ketones Urine Blood Urine Nitrite Urine Bilirubin Urine Urobilinogen Ur Leukocyte Esterase ASSESSMENT/PLAN: 67 year-old male with a PMH significant for HTN, HLD, CAD s/p stent (11/2017), IDDM, kidney stones, BPH, restless leg syndrome, and dementia. Admitted for DKA and elevated troponin. DKA --AG 21-->8; K 4.4-->4.0; HCO3 17-->24 --continue D51/2+20K @ 250/hr --give Levemir 20U and continue insulin drip for 2 more hours, stop at 9:30pm --diabetic diet ordered --after insulin drip stopped, Novolog sliding scale coverage YUNG --BUN/Cr 40/2.2-->34/1.7 Coronary artery disease s/p stent 11/20/17 Elevated troponin --s/p stent several weeks ago, continue ticegrelor --initial troponin elevated, two pending Hypertension --BP stable --continue Toprol XL --hold enalapril due to YUNG Hyperlipidemia --continued Lipitor IDDM --Levemir 20U qhs --Novolog sliding scale coverage Kidney stones --no acute issues BPH --continued flomax, oxybutinin Restless leg syndrome --continued Mirapex Dementia --continued Prozac, risperdal Visit type - Emergency Visit Emergency Visit: Yes ED Registration Date: 11/27/17 Care time: The patient presented to the Emergency Department on the above date and was hospitalized for further evaluation of their emergent condition. - New Patient This patient is new to me today: Yes Date on this admission: 11/27/17 - Critical Care Critical Care patient: No Hospitalist Screening - Colonoscopy Questionnaire Colonoscopy Questionnaire: Colonoscopy Questionnaire - Patient: 50 - 75 years old and never had a screening colonoscopy: Unknown History of colon or rectal polyps, or CA: Unknown History of IBD, Crohn's disease or UC: Unknown History of abdominal radiation therapy as a child: Unknown - Relative: 1 with colon or rectal CA, or polyps at age 60 or younger: Unknown Colon or rectal CA diagnosed at age 45 or younger: Unknown Multiple relatives with colon or rectal CA: Unknown - Outcome: Screening Result: Negative Screen
[2017-11-27 13:20] LABS: ACETONE SERUM POSITIVE MODERATE 2+ (NEGATIVE)
[2017-11-27 13:21] LABS: ACANTHOCYTES 0; ANISOCYTOSIS 0; HELMET CELLS 0; HOWELL-JOLLY BODIES 0; MACROCYTOSIS 0; OVALOCYTE 0; PLATELET ESTIMATE NORMAL; ROULEAU 0; SICKELED CELLS 0; TARGET CELLS 0; TEAR DROP CELLS 0; TOXIC GRANULATION 0
[2017-11-27] MEDS ORDERED: SODIUM CHLORIDE 0.45%/POT 20 MEQ/1,000 ML INFUS.BAG IV SCH (14:45)
[2017-11-27 14:58] LABS: ARTERIAL BLD GAS O2 SATURATION 95.5 % (90-98.9); ARTERIAL BLOOD GAS BASE EXCESS -1.3 meq/l (-2-2); ARTERIAL BLOOD GAS PO2 73.7 mmHg (80-100); ARTERIAL BLOOD GAS pH 7.42 (7.35-7.45)
[2017-11-27 15:01] LABS: ALLENS TEST POSITIVE
[2017-11-27 15:57] LABS: ANION GAP 8 (8-16); BLOOD UREA NITROGEN 34 mg/dL (7-18); CALCIUM 8.1 mg/dL (8.5-10.1); CHLORIDE 105 mmol/L (98-107); CO2 24 mmol/L (21-32); CREATININE 1.7 mg/dL (0.7-1.3); GLUCOSE,RANDOM 287 mg/dL (74-106); MAGNESIUM 2.2 mg/dL (1.8-2.4); SODIUM 137 mmol/L (136-145)
--- NOTE | 2017-11-27 16:28 | EKG ---
Test Reason : Blood Pressure : / mmHG Vent. Rate : 083 BPM Atrial Rate : 083 BPM P-R Int : 158 ms QRS Dur : 092 ms QT Int : 374 ms P-R-T Axes : 066 052 035 degrees QTc Int : 439 ms NORMAL SINUS RHYTHM NORMAL ECG WHEN COMPARED WITH ECG OF 19-NOV-2017 13:20, NONSPECIFIC T WAVE ABNORMALITY NOW EVIDENT IN ANTERIOR LEADS Confirmed by ELIZABETH BLANCA, J LUIS ([id number]) on 11/27/2017 4:28:00 PM Referred By: Confirmed By:J LUIS JOHNSON MD
--- NOTE | 2017-11-27 17:00 | CON.CARD ---
Consult Consult Specialty:: Cardiology Reason for Consultation:: Weakness. Frequent urination. Recent cath - History of Present Illness Chief Complaint: Generalized weakness. Frequent urination History of Present Illness: This is a 67 year old male with a PMH of HTN, DM, HLD, and memory loss. He recently underwent a cardiac evaluation which included an Echocardiogram which showed normal LV function with trace MR and mild TR. Nuclear stress test 11/19/17 showed a large area of severe septal, apical, and inferior ischemia , with apical hypokinesis, EF 57%. This led to a cardiac cath at [facility] which was performed on 11/20/17 which resulted in a mid LAD CACHORRO and a POBA to the diagonal branch. He presents now with 4-5 days of frequent urination and generalized weakness. - Past Medical History Cardio/Vascular: Yes: HTN Renal/: Yes: BPH Endocrine: Yes: Diabetes Mellitus - Alcohol/Substance Use Hx Alcohol Use: No - Smoking History Smoking history: Never smoked Have you smoked in the past 12 months: No - Social History ADL: Independent Home Medications - Allergies Allergies/Adverse Reactions: Allergies Allergy/AdvReac Type Severity Reaction Status Date / Time No Known Drug Allergies Allergy Verified 11/27/17 10:22 - Home Medications Home Medications: Ambulatory Orders Aspirin [Aspirin EC] 0 mg PO DAILY 11/27/17 Atorvastatin Ca [Lipitor] 0 mg PO HS 11/27/17 Enalapril Maleate [Vasotec] 10 mg PO DAILY 11/27/17 Fluoxetine HCl [Prozac -] 20 mg PO DAILY 11/27/17 Metoprolol Succinate [Toprol Xl] 0 mg PO ASDIR 11/27/17 Omeprazole 40 mg PO DAILY 11/27/17 Pioglitazone HCl [Actos] 30 mg PO DAILY 11/27/17 Pramipexole Di-HCl [Mirapex] 0.25 mg PO DAILY 11/27/17 Repaglinide [Prandin -] 1 mg PO TID 11/27/17 Tamsulosin HCl [Flomax] 0.4 mg PO DAILY 11/27/17 Ticagrelor [Brilinta] 0 mg PO ASDIR 11/27/17 Review of Systems Findings/Remarks: As per HPI Vital Signs: Vital Signs Temperature 97.9 F 11/27/17 10:19 Pulse Rate 88 05/24/18 10:19 Respiratory Rate 20 11/27/17 10:19 Blood Pressure 123/59 11/27/17 10:19 O2 Sat by Pulse Oximetry (%) 96 11/27/17 10:19 Constitutional: Yes: Well Nourished, No Distress Eyes: Yes: WNL, Occular Prosthesis Neck: Yes: WNL Respiratory: Yes: CTA Bilaterally Gastrointestinal: Yes: Normal Bowel Sounds Cardiovascular: Yes: Regular Rate and Rhythm (NL S1S2, no MRHG) JVD: Yes Extremities: Yes: WNL Edema: Yes Neurological: Yes: Alert, Oriented - Other Data Labs, Other Data: CBC, BMP 11/27/17 11:10 11/27/17 15:30 Troponin, BNP 11/27/17 11:10 Troponin I 0.42 H D Troponin, BNP 11/27/17 11:10 Troponin I 0.42 H D Assessment/Plan 67 year old male with a PMH of HTN, DM, HLD, and memory loss. He recently underwent a cardiac evaluation which included an Echocardiogram 11/18/17 which showed normal LV function with trace MR and mild TR. Nuclear stress test showed a large area of severe septal, apical, and inferior ischemia, with apical hypokinesis, EF 57%. This led to a cardiac cath at [facility] which was performed on 11/20/17 which resulted in a mid LAD CACHORRO and a POBA to the diagonal branch. He presents now with 4-5 days of frequent urination and generalized weakness. Frequent urination and generalized weakness Unlikely to be related to the recent cardiac cath, although we have to keep an eye on the renal function More likely to be related to hyperglycemia Troponin Level 0.42 and likely represents demand ischemia. Follow tropinin trends. Continue cardiac meds: Metoprol XL 25 mg PO daily/Atorvastatin 10 mg daily/ Aspirin 81 mg po Daily/Ticagrelor 60 mg PO daily EKG without acute changes. Will follow with you.
[2017-11-27] MEDS: HEPARIN NA (PORCINE) 5,000 UNITS/ML 1ML VIAL SQ SCH ×2 (18:00→22:50)
[2017-11-27] MEDS: TICAGRELOR 60 MG TABLET PO SCH ×2 (19:02→22:50)
[2017-11-27] MEDS: PANTOPRAZOLE 40 MG TABLET (FP) PO SCH (19:03)
[2017-11-27] MEDS: metoPROLOL SUCCINATE 25 MG TAB.SR.24H (FP) PO SCH (19:03)
[2017-11-27] MEDS ORDERED: D5-1/2NS+20 MEQ KCL - 20 MEQ/1,000 ML INFUS.BAG IV SCH (19:30)
[2017-11-27] MEDS ORDERED: INSULIN (LEVEMIR) 100 UNITS/ML UNITS SQ ONE (19:34)
[2017-11-27] MEDS ORDERED: risperiDONE 1 MG TABLET (FP) PO SCH (20:15)
[2017-11-27 21:35] LABS: ANION GAP 8 (8-16); BLOOD UREA NITROGEN 31 mg/dL (7-18); CALCIUM 8.2 mg/dL (8.5-10.1); CHLORIDE 106 mmol/L (98-107); CO2 26 mmol/L (21-32); CREATININE 1.4 mg/dL (0.7-1.3); GLUCOSE,RANDOM 95 mg/dL (74-106); MAGNESIUM 2.2 mg/dL (1.8-2.4); PHOSPHOROUS 2.9 mg/dL (2.5-4.9); POTASSIUM 3.8 mmol/L (3.5-5.1); SODIUM 140 mmol/L (136-145)
[2017-11-27] MEDS ORDERED: MUPIROCIN 2% TOPICAL OINTMENT FOR DECOLONIZATION NS SCH (22:00)
[2017-11-27] MEDS ORDERED: CHLORHEXIDINE GLUCONATE 4% CLEANSER FOR DECOLONIZATION TP SCH (22:00)
[2017-11-27] MEDS: INSULIN SLIDING SCALE (NOVOLOG) 1 VIAL SQ SCH (22:12)
[2017-11-27] MEDS ORDERED: HEPARIN NA (PORCINE) 5,000 UNITS/ML 1ML VIAL ONE (22:42)
[2017-11-27] MEDS: ATORVASTATIN CA 10 MG TABLET (FP) PO SCH (22:50)
[2017-11-27] MEDS: SODIUM CHLORIDE 0.9%/KCL 20 MEQ/1,000 ML INFUS.BAG IV SCH (22:50)
[2017-11-28 01:19] VITALS: BMI 34.2
[2017-11-28] MEDS: INSULIN SLIDING SCALE (NOVOLOG) 1 VIAL SQ SCH ×4 (06:36→22:07)
[2017-11-28 07:34] LABS: BASO % 0.3 % (0-2.0); EOS % 1.1 % (0-4.5); HEMATOCRIT 37.1 % (35.4-49); HEMOGLOBIN 12.4 GM/dL (11.7-16.9); MCHC 33.4 g/dl (32.0-35.9); MEAN CELL VOLUME 86.6 fl (80-96); MEAN PLT VOLUME 9.9 fl (7.5-11.1); MONO % 7.5 % (3.8-10.2); NEUT % 80.1 % (42.8-82.8); PLATELET COUNT 188 K/MM3 (134-434); RBC 4.28 M/mm3 (4.00-5.60); WHITE BLOOD COUNT 7.9 K/mm3 (4.0-10.0)
[2017-11-28 08:09] LABS: CHLORIDE 110 mmol/L (98-107); POTASSIUM 3.9 mmol/L (3.5-5.1); SODIUM 142 mmol/L (136-145)
[2017-11-28 08:30] LABS: ALBUMIN 3.1 g/dl (3.4-5.0); ALK PHOS 60 U/L (45-117); ANION GAP 8 (8-16); BILIRUBIN,TOTAL 0.6 mg/dL (0.2-1.0); BLOOD UREA NITROGEN 25 mg/dL (7-18); CALCIUM 7.9 mg/dL (8.5-10.1); CO2 24 mmol/L (21-32); CREATININE 1.2 mg/dL (0.7-1.3); GLUCOSE,RANDOM 66 mg/dL (74-106); MAGNESIUM 2.1 mg/dL (1.8-2.4); PHOSPHOROUS 2.8 mg/dL (2.5-4.9); SGOT/AST 13 U/L (15-37); SGPT/ALT 32 U/L (12-78); TOT PROT 5.5 g/dl (6.4-8.2)
[2017-11-28] MEDS: FLUoxetine HCL 20 MG CAPSULE (FP) PO SCH (09:44)
[2017-11-28] MEDS: ASPIRIN COATED 81 MG TABLET.EC PO SCH (09:44)
[2017-11-28] MEDS: TAMSULOSIN HCL 0.4 MG CAP.ER.24H (FP) PO SCH (09:44)
[2017-11-28] MEDS: SOLIFENACIN SUCCINATE 5 MG TAB (FP) PO SCH (09:44)
[2017-11-28] MEDS: metoPROLOL SUCCINATE 25 MG TAB.SR.24H (FP) PO SCH (09:44)
[2017-11-28] MEDS: TICAGRELOR 60 MG TABLET PO SCH ×2 (09:45→22:06)
[2017-11-28] MEDS: risperiDONE 1 MG TABLET (FP) PO SCH (09:45)
[2017-11-28] MEDS: PRAMIPEXOLE DIHYDROCHLORIDE 0.25 MG TABLET PO SCH (09:45)
--- NOTE | 2017-11-28 09:45 | PN ---
Progress Note, Physician History of Present Illness: seen and examined today in nad. feeling well, no overnight events. no new complaints. - Current Medication List Current Medications: Active Medications Aspirin (Ecotrin -) 81 mg PO DAILY [facility] Atorvastatin Calcium (Lipitor -) 10 mg PO HS [facility] Last Admin: 11/27/17 22:50 Dose: 10 mg Fluoxetine HCl (Prozac -) 20 mg PO DAILY [facility] Heparin Sodium (Porcine) (Heparin -) 5,000 unit SQ TID [facility] Last Admin: 11/27/17 22:50 Dose: 5,000 unit Potassium Chloride/Sodium Chloride (Ns+20 Meq Kcl -) 20 meq in 1,000 mls @ 75 mls/hr IV ASDIR [facility] Last Admin: 11/27/17 22:50 Dose: 75 mls/hr Insulin Aspart (Novolog Vial Sliding Scale -) 1 vial SQ ACHS [facility]; Protocol Last Admin: 11/28/17 06:36 Dose: Not Given Insulin Detemir (Levemir Vial) 20 units SQ HS [facility] Metoprolol Succinate (Toprol Xl -) 25 mg PO DAILY [facility] Last Admin: 11/27/17 19:03 Dose: Not Given Pantoprazole Sodium (Protonix -) 40 mg PO DAILY [facility] Last Admin: 11/27/17 19:03 Dose: Not Given Pramipexole Dihydrochloride (Mirapex -) 0.25 mg PO DAILY [facility] Risperidone (Risperdal -) 1 mg PO DAILY [facility] Solifenacin (Vesicare -) 5 mg PO DAILY [facility] Tamsulosin HCl (Flomax -) 0.4 mg PO DAILY@0830 [facility] Ticagrelor (Brilinta) 60 mg PO BID [facility] Last Admin: 11/27/17 22:50 Dose: 60 mg - Objective Vital Signs: Vital Signs Temperature 98.7 F 11/28/17 06:00 Pulse Rate 80 11/28/17 06:00 Respiratory Rate 18 11/28/17 06:00 Blood Pressure 124/72 11/28/17 06:00 O2 Sat by Pulse Oximetry (%) 95 11/28/17 06:00 Constitutional: Yes: No Distress, Calm Eyes: Yes: Conjunctiva Clear, EOM Intact, PERRL HENT: Yes: Atraumatic, Normocephalic Neck: Yes: Supple, Trachea Midline Cardiovascular: Yes: Regular Rate and Rhythm, S1, S2. No: Bradycardia, Tachycardia, Pulse Irregular, Bruit, JVD, Gallop, Murmur, Rub, S3, S4, Varicosities Respiratory: Yes: Regular, CTA Bilaterally. No: Rales, Rhonchi, Wheezes Gastrointestinal: Yes: Normal Bowel Sounds, Soft. No: Distention, Tenderness Musculoskeletal: Yes: WNL Extremities: Yes: WNL Edema: No Peripheral Pulses WNL: Yes Peripheral Pulses: Left Doralis Pedis: 2+, Right Dorsalis Pedis: 2+ Integumentary: Yes: WNL Neurological: Yes: Alert, Oriented Psychiatric: Yes: Alert, Oriented Labs: CBC, BMP 11/28/17 06:58 11/28/17 06:58 - ....Imaging Chest X-ray: Report Reviewed, Image Reviewed EKG: Report Reviewed, Image Reviewed Other: Report Reviewed, Image Reviewed (tele-nsr, no events recorded) Assessment/Plan 67 year old male with a PMH of HTN, DM, HLD, and memory loss. He recently underwent a cardiac evaluation which included an Echocardiogram 11/18/17 which showed normal LV function with trace MR and mild TR. Nuclear stress test showed a large area of severe septal, apical, and inferior ischemia, with apical hypokinesis, EF 57%. This led to a cardiac cath at [facility] which was performed on 11/20/17 which resulted in a mid LAD CACHORRO and a POBA to the diagonal branch. He presents now with 4-5 days of frequent urination and generalized weakness. Frequent urination and generalized weakness Unlikely to be related to the recent cardiac cath bun/creat stable Trop did not trend up No events on tele overnight Continue cardiac meds: Metoprol XL 25 mg PO daily/Atorvastatin 10 mg daily/ Aspirin 81 mg po Daily/Ticagrelor 60 mg PO daily EKG without acute changes. Ok to dc tele Ok from a cardiac standpoint for discharge with outpatient f/up Please call with any additional questions
--- NOTE | 2017-11-28 10:36 | EKG ---
Test Reason : Blood Pressure : / mmHG Vent. Rate : 068 BPM Atrial Rate : 068 BPM P-R Int : 154 ms QRS Dur : 088 ms QT Int : 406 ms P-R-T Axes : 066 053 056 degrees QTc Int : 431 ms NORMAL SINUS RHYTHM NONSPECIFIC T WAVE ABNORMALITY Confirmed by WALLACE GARY MD ([id number]) on 11/28/2017 10:36:16 AM Referred By: SUMAN CRUZ Confirmed By:WALLACE GARY MD
[2017-11-28] MEDS: PANTOPRAZOLE 40 MG TABLET (FP) PO SCH (11:48)
[2017-11-28] MEDS: HEPARIN NA (PORCINE) 5,000 UNITS/ML 1ML VIAL SQ SCH ×2 (14:10→22:06)
[2017-11-28] MEDS: SODIUM CHLORIDE 0.9%/KCL 20 MEQ/1,000 ML INFUS.BAG IV SCH (15:34)
--- NOTE | 2017-11-28 16:05 | PN ---
Physical Exam: SUBJECTIVE: Patient seen and examined. Feeling much better. OBJECTIVE: Vital Signs Period Temp Pulse Resp BP Sys/Velasco Pulse Ox Last 24 Hr 98 F-98.7 F 65-85 16-18 94-124/56-72 95-96 GENERAL: Awake, alert, and fully oriented, in no acute distress. LUNGS: Breath sounds equal, clear to auscultation bilaterally. No wheezes, and no crackles. No accessory muscle use. HEART: Regular rate and rhythm, normal S1 and S2 ABDOMEN: Soft, nontender, not distended, normoactive bowel sounds, no guarding, no rebound, no masses MUSCULOSKELETAL: Normal range of motion at all joints. No bony deformities or tenderness. No CVA tenderness. UPPER EXTREMITIES: 2+ pulses, warm, well-perfused. No cyanosis. No clubbing. No peripheral edema. LOWER EXTREMITIES: 2+ pulses, warm, well-perfused. No calf tenderness. No peripheral edema. NEUROLOGICAL: Cranial nerves II-XII intact. Normal speech. Laboratory Results - last 24 hr 11/27/17 11/27/17 11/27/17 15:30 15:30 16:58 WBC RBC Hgb Hct MCV MCH MCHC RDW Plt Count MPV Neutrophils % Lymphocytes % Monocytes % Eosinophils % Basophils % Nucleated RBC % Sodium Potassium Chloride Carbon Dioxide Anion Gap BUN Creatinine Creat Clearance w eGFR POC Glucometer [phone] Random Glucose Hemoglobin A1c % 10.1 H D Lactic Acid 1.6 Calcium Phosphorus Magnesium Total Bilirubin AST ALT Alkaline Phosphatase Troponin I Total Protein Albumin 11/27/17 11/27/17 11/27/17 18:57 20:44 20:45 WBC RBC Hgb Hct MCV MCH MCHC RDW Plt Count MPV Neutrophils % Lymphocytes % Monocytes % Eosinophils % Basophils % Nucleated RBC % Sodium 140 Potassium 3.8 Chloride 106 Carbon Dioxide 26 Anion Gap 8 BUN 31 H Creatinine 1.4 H Creat Clearance w eGFR POC Glucometer [phone] Random Glucose 95 D Hemoglobin A1c % Lactic Acid Calcium 8.2 L Phosphorus 2.9 Magnesium 2.2 Total Bilirubin AST ALT Alkaline Phosphatase Troponin I 0.32 H Total Protein Albumin 11/27/17 11/28/17 11/28/17 22:11 01:23 02:30 WBC RBC Hgb Hct MCV MCH MCHC RDW Plt Count MPV Neutrophils % Lymphocytes % Monocytes % Eosinophils % Basophils % Nucleated RBC % Sodium Potassium Chloride Carbon Dioxide Anion Gap BUN Creatinine Creat Clearance w eGFR POC Glucometer [phone] Random Glucose Hemoglobin A1c % Lactic Acid Calcium Phosphorus Magnesium Total Bilirubin AST ALT Alkaline Phosphatase Troponin I 0.30 H Total Protein Albumin 11/28/17 11/28/17 11/28/17 05:37 06:58 06:58 WBC 7.9 D RBC 4.28 Hgb 12.4 D Hct 37.1 D MCV 86.6 MCH 29.0 MCHC 33.4 RDW 13.0 Plt Count 188 MPV 9.9 Neutrophils % 80.1 Lymphocytes % 11.0 D Monocytes % 7.5 D Eosinophils % 1.1 D Basophils % 0.3 Nucleated RBC % 0 Sodium 142 Potassium 3.9 Chloride 110 H Carbon Dioxide 24 Anion Gap 8 BUN 25 H Creatinine 1.2 Creat Clearance w eGFR > 60 POC Glucometer 79 Random Glucose 66 L D Hemoglobin A1c % Lactic Acid Calcium 7.9 L Phosphorus 2.8 Magnesium 2.1 Total Bilirubin 0.6 D AST 13 L ALT 32 D Alkaline Phosphatase 60 D Troponin I Total Protein 5.5 L D Albumin 3.1 L D 11/28/17 11:55 WBC RBC Hgb Hct MCV MCH MCHC RDW Plt Count MPV Neutrophils % Lymphocytes % Monocytes % Eosinophils % Basophils % Nucleated RBC % Sodium Potassium Chloride Carbon Dioxide Anion Gap BUN Creatinine Creat Clearance w eGFR POC Glucometer 221 Random Glucose Hemoglobin A1c % Lactic Acid Calcium Phosphorus Magnesium Total Bilirubin AST ALT Alkaline Phosphatase Troponin I Total Protein Albumin Active Medications Generic Name Dose Route Start Last Admin Trade Name Freq PRN Reason Stop Dose Admin Aspirin 81 mg 11/28/17 10:00 11/28/17 09:44 Ecotrin - PO 81 mg DAILY NAMRATA Administration Atorvastatin Calcium 10 mg 11/27/17 22:00 11/27/17 22:50 Lipitor - PO 10 mg HS NAMRATA Administration Fluoxetine HCl 20 mg 11/28/17 10:00 11/28/17 09:44 Prozac - PO 20 mg DAILY NAMRATA Administration Heparin Sodium (Porcine) 5,000 unit 11/27/17 16:00 11/28/17 14:10 Heparin - SQ 5,000 unit TID NAMRATA Administration Potassium Chloride/Sodium Chloride 20 meq in 1,000 mls @ 75 mls/hr 11/27/17 22 :45 11/28/17 15:34 Ns+20 Meq Kcl - IV 75 mls/hr ASDIR NAMRATA Administration Insulin Aspart 1 vial 11/27/17 22:00 11/28/17 11:59 Novolog Vial Sliding Scale - SQ 4 units ACHS NAMRATA Administration Protocol Insulin Detemir 20 units 11/28/17 22:00 Levemir Vial SQ HS [facility] Metoprolol Succinate 25 mg 11/27/17 14:45 11/28/17 09:44 Toprol Xl - PO 25 mg DAILY NAMRATA Administration Pantoprazole Sodium 40 mg 11/27/17 14:15 11/28/17 11:48 Protonix - PO 40 mg DAILY NAMRATA Administration Pramipexole Dihydrochloride 0.25 mg 11/28/17 10:00 11/28/17 09:45 Mirapex - PO 0.25 mg DAILY NAMRATA Administration Risperidone 1 mg 11/28/17 10:00 11/28/17 09:45 Risperdal - PO 1 mg DAILY NAMRATA Administration Solifenacin 5 mg 11/28/17 10:00 11/28/17 09:44 Vesicare - PO 5 mg DAILY NAMRATA Administration Tamsulosin HCl 0.4 mg 11/28/17 08:30 11/28/17 09:44 Flomax - PO 0.4 mg DAILY@0830 NAMRATA Administration Ticagrelor 60 mg 11/27/17 14:45 11/28/17 09:45 Brilinta PO 60 mg BID NAMRATA Administration ASSESSMENT/PLAN: 67 year-old male with a PMH significant for HTN, HLD, CAD s/p stent (11/2017), IDDM, kidney stones, BPH, restless leg syndrome, and dementia. Admitted for DKA and elevated troponin. DKA IDDM --anion gap closed --continue Levemir 20U qhs --Novolog sliding scale coverage --discussion with daughter who is very concerned patient's PCP discontinued insulin after many years; tried reaching PCP's office several times, no answer --consult placed for Dr. Tricia BARRAGAN, resolved --Cr 1.2 at baseline Coronary artery disease s/p stent 11/20/17 Elevated troponin --s/p stent several weeks ago, continue ticegrelor --troponins downtrending, no events on tele, ECG without acute change --d/c telemetry Hypertension --BP stable --continue Toprol XL --hold enalapril due to YUNG Hyperlipidemia --continued Lipitor Kidney stones --no acute issues BPH --continued flomax, oxybutinin Restless leg syndrome --continued Mirapex Dementia --continued Prozac, risperdal FEN Fluids: PO intake adequate Electrolytes: replete as indicated Nutrition: diabetic low sodium DVT prophylaxis: subq heparin, oob, ambulation Dispo: continues to require inpatient care. Full code. Visit type - Emergency Visit Emergency Visit: Yes ED Registration Date: 11/27/17 Care time: The patient presented to the Emergency Department on the above date and was hospitalized for further evaluation of their emergent condition. - New Patient This patient is new to me today: No - Critical Care Critical Care patient: No
[2017-11-28] MEDS ORDERED: PT OWN MED DRAWER 7, Y5N ONE (21:39)
[2017-11-28] MEDS ORDERED: INSULIN (LEVEMIR) 100 UNITS/ML UNITS SQ SCH (22:00)
[2017-11-28] MEDS ORDERED: INSULIN (NOVOLOG) ASPART 100 UNITS/ML 10ML VIAL ONE (22:04)
[2017-11-28] MEDS: ATORVASTATIN CA 10 MG TABLET (FP) PO SCH (22:06)
[2017-11-29] MEDS: INSULIN SLIDING SCALE (NOVOLOG) 1 VIAL SQ SCH ×3 (06:23→17:10)
[2017-11-29] MEDS: HEPARIN NA (PORCINE) 5,000 UNITS/ML 1ML VIAL SQ SCH ×3 (06:45→21:29)
[2017-11-29 07:38] LABS: BASO % 0.5 % (0-2.0); EOS % 2.6 % (0-4.5); HEMATOCRIT 36.3 % (35.4-49); HEMOGLOBIN 12.2 GM/dL (11.7-16.9); LYMPH % 21.9 % (8-40); MCH 29.1 pg (25.7-33.7); MCHC 33.6 g/dl (32.0-35.9); MEAN CELL VOLUME 86.6 fl (80-96); MEAN PLT VOLUME 9.6 fl (7.5-11.1); MONO % 11.4 % (3.8-10.2); NEUT % 63.6 % (42.8-82.8); PLATELET COUNT 156 K/MM3 (134-434); RBC 4.19 M/mm3 (4.00-5.60); RDW 13.2 % (11.9-15.9); WHITE BLOOD COUNT 4.1 K/mm3 (4.0-10.0)
[2017-11-29 07:48] LABS: CHLORIDE 108 mmol/L (98-107); POTASSIUM 3.9 mmol/L (3.5-5.1); SODIUM 143 mmol/L (136-145)
[2017-11-29 07:59] LABS: ALBUMIN 3.2 g/dl (3.4-5.0); ALK PHOS 61 U/L (45-117); ANION GAP 8 (8-16); BILIRUBIN,TOTAL 0.4 mg/dL (0.2-1.0); BLOOD UREA NITROGEN 16 mg/dL (7-18); CALCIUM 8.2 mg/dL (8.5-10.1); CO2 27 mmol/L (21-32); CREATININE 1.1 mg/dL (0.7-1.3); GLUCOSE,RANDOM 80 mg/dL (74-106); MAGNESIUM 2.1 mg/dL (1.8-2.4); SGOT/AST 19 U/L (15-37); SGPT/ALT 34 U/L (12-78); TOT PROT 5.7 g/dl (6.4-8.2)
[2017-11-29] MEDS ORDERED: PT OWN MED DRAWER 7, Y5N ONE ×2 (09:13→20:48)
[2017-11-29] MEDS: metoPROLOL SUCCINATE 25 MG TAB.SR.24H (FP) PO SCH (09:18)
[2017-11-29] MEDS: FLUoxetine HCL 20 MG CAPSULE (FP) PO SCH (09:18)
[2017-11-29] MEDS: SOLIFENACIN SUCCINATE 5 MG TAB (FP) PO SCH (09:18)
[2017-11-29] MEDS: ASPIRIN COATED 81 MG TABLET.EC PO SCH (09:18)
[2017-11-29] MEDS: PANTOPRAZOLE 40 MG TABLET (FP) PO SCH (09:18)
[2017-11-29] MEDS: TAMSULOSIN HCL 0.4 MG CAP.ER.24H (FP) PO SCH (09:18)
[2017-11-29] MEDS: PRAMIPEXOLE DIHYDROCHLORIDE 0.25 MG TABLET PO SCH (09:19)
[2017-11-29] MEDS: risperiDONE 1 MG TABLET (FP) PO SCH (09:19)
[2017-11-29] MEDS: TICAGRELOR 60 MG TABLET PO SCH ×2 (09:20→21:30)
--- NOTE | 2017-11-29 12:46 | CONSULT ---
Consult Consult Specialty:: Endocrinology Referred by:: Carmel Goldstein Reason for Consultation:: DKA - History of Present Illness Chief Complaint: Polyuria History of Present Illness: This is a 67 year old male, with h/o hypertension, hyperlipidemia, kidney stones , benign prostatic hyperplasia, DM for 20 years, on Insulin for about 10 years, restless leg syndrome, alzheimers and dementia who presented to the emergency department with 4-5 days of frequent urination and generalized weakness beginning the morning of admission. The patient stateed that 2 weeks ago he was switched to another Insulin by his PMD. The patient reports that 3 days ago he meet with Dr. Neymar Decker at his office and stopped the Insulin and was switched to Actos. The patient states he woke up in the morning feeling very weak and vomited 4x (non bloody, non bilious). The patient also reports he was recently admitted to [facility] on 11/18 and discharged to [facility] on 11/19 for a stent placement. BGM at home 200 to 300s.No Hypos. Takes ?Metformin with Basaglar 30 units daily in the morning and adds 4 to 6 more units at night if blood sugar is "high". C/O Polyuria, Nocturia and blurred vision. Last Oph exam in July. Has occasional tingling of feet. Currently feels good. Denies any CP, SOB or palpitations. No abd pain, No N/V - History Source History Provided By: Patient, Medical Record Limitations to Obtaining History: Language Barrier - Past Medical History Cardio/Vascular: Yes: HTN Renal/: Yes: BPH Endocrine: Yes: Diabetes Mellitus - Alcohol/Substance Use Hx Alcohol Use: No - Smoking History Smoking history: Never smoked Have you smoked in the past 12 months: No - Social History ADL: Independent Home Medications - Allergies Allergies/Adverse Reactions: Allergies Allergy/AdvReac Type Severity Reaction Status Date / Time No Known Drug Allergies Allergy Verified 11/27/17 10:22 - Home Medications Home Medications: Ambulatory Orders Aspirin [Aspirin EC] 0 mg PO DAILY 11/27/17 Atorvastatin Ca [Lipitor] 0 mg PO HS 11/27/17 Enalapril Maleate [Vasotec] 10 mg PO DAILY 11/27/17 Fluoxetine HCl [Prozac -] 20 mg PO DAILY 11/27/17 Metoprolol Succinate [Toprol Xl] 0 mg PO ASDIR 11/27/17 Omeprazole 40 mg PO DAILY 11/27/17 Oxybutynin Chloride [Oxybutynin Chloride ER] 10 mg PO DAILY 11/27/17 Pioglitazone HCl [Actos] 30 mg PO DAILY 11/27/17 Pramipexole Di-HCl [Mirapex] 0.25 mg PO DAILY 11/27/17 Repaglinide [Prandin -] 1 mg PO TID 11/27/17 Risperidone 1 mg PO DAILY 11/27/17 Tamsulosin HCl [Flomax] 0.4 mg PO DAILY 11/27/17 Ticagrelor [Brilinta] 0 mg PO ASDIR 11/27/17 Family Disease History - Family Disease History Family Disease History: Diabetes: Mother Review of Systems - Review of Systems Constitutional: reports: No Symptoms Eyes: reports: Blurred Vision HENT: reports: No Symptoms Neck: reports: No Symptoms Cardiovascular: reports: No Symptoms Respiratory: reports: No Symptoms Gastrointestinal: reports: No Symptoms Genitourinary: reports: Other (Polyuria) Musculoskeletal: reports: No Symptoms Endocrine: reports: No Symptoms Hematology/Lymphatic: reports: No Symptoms Psychiatric: reports: No Symptoms Physical Exam Vital Signs: Vital Signs Temperature 98.4 F 11/29/17 09:52 Pulse Rate 73 11/29/17 09:52 Respiratory Rate 18 11/29/17 09:52 Blood Pressure 127/67 11/29/17 09:52 O2 Sat by Pulse Oximetry (%) 95 11/29/17 09:00 Constitutional: Yes: No Distress, Calm Eyes: Yes: Conjunctiva Clear, EOM Intact HENT: Yes: Atraumatic, Normocephalic Neck: Yes: Supple, Trachea Midline Cardiovascular: Yes: Regular Rate and Rhythm Respiratory: Yes: Regular, CTA Bilaterally Gastrointestinal: Yes: Normal Bowel Sounds, Soft Renal/: Yes: WNL Musculoskeletal: Yes: WNL Extremities: Yes: WNL Edema: No Neurological: Yes: Alert, Oriented Labs: CBC, BMP 11/29/17 06:45 11/29/17 06:45 Problem List - Problems (1) Acute renal insufficiency Code(s): N28.9 - DISORDER OF KIDNEY AND URETER, UNSPECIFIED (2) DKA (diabetic ketoacidoses) Code(s): E13.10 - OTH DIABETES MELLITUS WITH KETOACIDOSIS WITHOUT COMA Qualifiers: Diabetes mellitus type: type 2 Diabetes mellitus complication detail: without coma Qualified Code(s): E11.10 - Type 2 diabetes mellitus with ketoacidosis without coma (3) Diabetes Code(s): E11.9 - TYPE 2 DIABETES MELLITUS WITHOUT COMPLICATIONS (4) HTN (hypertension) Code(s): I10 - ESSENTIAL (PRIMARY) HYPERTENSION Assessment/Plan AP: DKA: resolved DM uncontrolled: A1c 10.1 YUNG, resolved Coronary artery disease s/p stent 11/20/17 Hypertension HLD Kidney stones BPH Decrease Levemir 18 units daily Change Novolog SS coverage Needs to go home on basal and bolus regimen for better blood sugar control. Restart Metformin once renal function is stable if he was on it in the past Nutrition consult Will F/U
[2017-11-29] MEDS ORDERED: INSULIN (NOVOLOG) ASPART 100 UNITS/ML 10ML VIAL ONE (20:48)
[2017-11-29] MEDS: ATORVASTATIN CA 10 MG TABLET (FP) PO SCH (21:32)
--- NOTE | 2017-11-29 21:42 | PN ---
Physical Exam: SUBJECTIVE: Patient seen and examined at bedside. OBJECTIVE: Vital Signs Period Temp Pulse Resp BP Sys/Velasco Pulse Ox Last 24 Hr 98.2 F-98.8 F 65-73 18-20 122-132/67-78 94-95 GENERAL: Awake, alert, and fully oriented, in no acute distress. LUNGS: Breath sounds equal, clear to auscultation bilaterally. No wheezes, and no crackles. No accessory muscle use. HEART: Regular rate and rhythm, normal S1 and S2 ABDOMEN: Soft, nontender, not distended, normoactive bowel sounds, no guarding, no rebound, no masses MUSCULOSKELETAL: Normal range of motion at all joints. No bony deformities or tenderness. No CVA tenderness. UPPER EXTREMITIES: 2+ pulses, warm, well-perfused. No cyanosis. No clubbing. No peripheral edema. LOWER EXTREMITIES: 2+ pulses, warm, well-perfused. No calf tenderness. No peripheral edema. NEUROLOGICAL: Cranial nerves II-XII intact. Normal speech. Laboratory Results - last 24 hr 11/28/17 11/29/17 11/29/17 21:58 06:17 06:45 WBC 4.1 D RBC 4.19 Hgb 12.2 Hct 36.3 MCV 86.6 MCH 29.1 MCHC 33.6 RDW 13.2 Plt Count 156 MPV 9.6 Neutrophils % 63.6 D Lymphocytes % 21.9 D Monocytes % 11.4 H Eosinophils % 2.6 D Basophils % 0.5 Nucleated RBC % 0 Sodium Potassium Chloride Carbon Dioxide Anion Gap BUN Creatinine Creat Clearance w eGFR POC Glucometer 239 91 Random Glucose Calcium Magnesium Total Bilirubin AST ALT Alkaline Phosphatase Total Protein Albumin 11/29/17 11/29/17 11/29/17 06:45 11:28 16:26 WBC RBC Hgb Hct MCV MCH MCHC RDW Plt Count MPV Neutrophils % Lymphocytes % Monocytes % Eosinophils % Basophils % Nucleated RBC % Sodium 143 Potassium 3.9 Chloride 108 H Carbon Dioxide 27 Anion Gap 8 BUN 16 D Creatinine 1.1 Creat Clearance w eGFR > 60 POC Glucometer 267 164 Random Glucose 80 D Calcium 8.2 L Magnesium 2.1 Total Bilirubin 0.4 D AST 19 D ALT 34 Alkaline Phosphatase 61 Total Protein 5.7 L Albumin 3.2 L Active Medications Generic Name Dose Route Start Last Admin Trade Name Freq PRN Reason Stop Dose Admin Aspirin 81 mg 11/28/17 10:00 11/29/17 09:18 Ecotrin - PO 81 mg DAILY NAMRATA Administration Atorvastatin Calcium 10 mg 11/27/17 22:00 11/28/17 22:06 Lipitor - PO 10 mg HS NAMRATA Administration Fluoxetine HCl 20 mg 11/28/17 10:00 11/29/17 09:18 Prozac - PO 20 mg DAILY NAMRATA Administration Heparin Sodium (Porcine) 5,000 unit 11/27/17 16:00 11/29/17 14:00 Heparin - SQ Not Given TID NAMRATA Insulin Aspart 1 vial 11/29/17 16:30 11/29/17 17:10 Novolog Vial Sliding Scale - SQ 4 units TIDAC [facility] Administration Protocol Insulin Aspart 1 vial 11/29/17 22:00 Novolog Vial Sliding Scale - SQ HS [facility] Protocol Insulin Detemir 18 units 11/29/17 22:00 Levemir Vial SQ HS NAMRATA Metoprolol Succinate 25 mg 11/27/17 14:45 11/29/17 09:18 Toprol Xl - PO 25 mg DAILY NAMRATA Administration Pantoprazole Sodium 40 mg 11/27/17 14:15 11/29/17 09:18 Protonix - PO 40 mg DAILY NAMRATA Administration Pramipexole Dihydrochloride 0.25 mg 11/28/17 10:00 11/29/17 09:19 Mirapex - PO 0.25 mg DAILY NAMRATA Administration Risperidone 1 mg 11/28/17 10:00 11/29/17 09:19 Risperdal - PO 1 mg DAILY NAMRATA Administration Solifenacin 5 mg 11/28/17 10:00 11/29/17 09:18 Vesicare - PO 5 mg DAILY NAMRATA Administration Tamsulosin HCl 0.4 mg 11/28/17 08:30 11/29/17 09:18 Flomax - PO 0.4 mg DAILY@0830 NAMRATA Administration Ticagrelor 60 mg 11/27/17 14:45 11/29/17 09:20 Brilinta PO 60 mg BID NAMRATA Administration ASSESSMENT/PLAN 67 year-old male with a PMH significant for HTN, HLD, CAD s/p stent (11/2017), IDDM, kidney stones, BPH, restless leg syndrome, and dementia. Admitted for DKA and elevated troponin. DKA, resolved IDDM --HgbA1C 10.1 --Novolog sliding scales modified --needs to go home on basal and bolus regimen --does not appear to have previously been on metformin, will not start now per endocrine --nutrition consult; diabetic teaching for patient and caregiver(s) YUNG, resolved --Cr 1.1 Coronary artery disease s/p stent 11/20/17 Elevated troponin --continue ticegrelor --troponins downtrending, no events on tele, ECG without acute change --d/c telemetry Hypertension --BP stable --continue Toprol XL --restart home enalapril Hyperlipidemia --continue Lipitor Kidney stones --no acute issues BPH --continue flomax, oxybutinin Restless leg syndrome --continue Mirapex Dementia --continue Prozac, risperdal FEN Fluids: PO intake adequate Electrolytes: replete as indicated Nutrition: diabetic low sodium DVT prophylaxis: subq heparin, oob, ambulation Dispo: continues to require inpatient care. Full code. Visit type - Emergency Visit Emergency Visit: Yes ED Registration Date: 11/27/17 Care time: The patient presented to the Emergency Department on the above date and was hospitalized for further evaluation of their emergent condition. - New Patient This patient is new to me today: No - Critical Care Critical Care patient: No
[2017-11-29] MEDS ORDERED: INSULIN (LEVEMIR) 100 UNITS/ML UNITS SQ SCH (22:00)
[2017-11-29] MEDS ORDERED: INSULIN SLIDING SCALE (NOVOLOG) 1 VIAL SQ SCH (22:00)
[2017-11-30] MEDS: INSULIN SLIDING SCALE (NOVOLOG) 1 VIAL SQ SCH ×2 (06:00→11:48)
[2017-11-30] MEDS: HEPARIN NA (PORCINE) 5,000 UNITS/ML 1ML VIAL SQ SCH (06:48)
--- NOTE | 2017-11-30 07:53 | PN ---
Physical Exam: SUBJECTIVE: Patient seen and examined OBJECTIVE: Vital Signs Period Temp Pulse Resp BP Sys/Velasco Pulse Ox Last 24 Hr 98.2 F-98.7 F 65-73 18-20 113-132/65-78 94-95 GENERAL: The patient is awake, alert, and fully oriented, in no acute distress. HEAD: Normal with no signs of trauma. EYES: PERRL, extraocular movements intact, sclera anicteric, conjunctiva clear. No ptosis. ENT: Ears normal, nares patent, oropharynx clear without exudates, moist mucous membranes. NECK: Trachea midline, full range of motion, supple. LUNGS: Breath sounds equal, clear to auscultation bilaterally, no wheezes, no crackles, no accessory muscle use. HEART: Regular rate and rhythm, S1, S2 without murmur, rub or gallop. ABDOMEN: Soft, nontender, nondistended, normoactive bowel sounds, no guarding, no rebound, no hepatosplenomegaly, no masses. EXTREMITIES: 2+ pulses, warm, well-perfused, no edema. NEUROLOGICAL: Cranial nerves II through XII grossly intact. Normal speech, gait not observed. PSYCH: Normal mood, normal affect. SKIN: Warm, dry, normal turgor, no rashes or lesions noted Laboratory Results - last 24 hr 11/29/17 11/29/17 11/29/17 06:45 11:28 16:26 Sodium 143 Potassium 3.9 Chloride 108 H Carbon Dioxide 27 Anion Gap 8 BUN 16 D Creatinine 1.1 Creat Clearance w eGFR > 60 POC Glucometer 267 164 Random Glucose 80 D Calcium 8.2 L Magnesium 2.1 Total Bilirubin 0.4 D AST 19 D ALT 34 Alkaline Phosphatase 61 Total Protein 5.7 L Albumin 3.2 L 11/29/17 21:28 Sodium Potassium Chloride Carbon Dioxide Anion Gap BUN Creatinine Creat Clearance w eGFR POC Glucometer 291 Random Glucose Calcium Magnesium Total Bilirubin AST ALT Alkaline Phosphatase Total Protein Albumin Active Medications Generic Name Dose Route Start Last Admin Trade Name Freq PRN Reason Stop Dose Admin Aspirin 81 mg 11/28/17 10:00 11/29/17 09:18 Ecotrin - PO 81 mg DAILY NAMRATA Administration Atorvastatin Calcium 10 mg 11/27/17 22:00 11/29/17 21:32 Lipitor - PO 10 mg HS NAMRATA Administration Enalapril Maleate 10 mg 11/30/17 10:00 Vasotec - PO DAILY NAMRATA Fluoxetine HCl 20 mg 11/28/17 10:00 11/29/17 09:18 Prozac - PO 20 mg DAILY NAMRATA Administration Heparin Sodium (Porcine) 5,000 unit 11/27/17 16:00 11/30/17 06:48 Heparin - SQ 5,000 unit TID NAMRATA Administration Insulin Aspart 1 vial 11/29/17 16:30 11/30/17 06:00 Novolog Vial Sliding Scale - SQ Not Given TIDAC [facility] Protocol Insulin Aspart 1 vial 11/29/17 22:00 11/29/17 21:32 Novolog Vial Sliding Scale - SQ 4 units HS [facility] Administration Protocol Insulin Detemir 18 units 11/29/17 22:00 11/29/17 21:31 Levemir Vial SQ 18 units HS NAMRATA Administration Metoprolol Succinate 25 mg 11/27/17 14:45 11/29/17 09:18 Toprol Xl - PO 25 mg DAILY NAMRATA Administration Pantoprazole Sodium 40 mg 11/27/17 14:15 11/29/17 09:18 Protonix - PO 40 mg DAILY NAMRATA Administration Pramipexole Dihydrochloride 0.25 mg 11/28/17 10:00 11/29/17 09:19 Mirapex - PO 0.25 mg DAILY NAMRATA Administration Risperidone 1 mg 11/28/17 10:00 11/29/17 09:19 Risperdal - PO 1 mg DAILY NAMRATA Administration Solifenacin 5 mg 11/28/17 10:00 11/29/17 09:18 Vesicare - PO 5 mg DAILY NAMRATA Administration Tamsulosin HCl 0.4 mg 11/28/17 08:30 11/29/17 09:18 Flomax - PO 0.4 mg DAILY@0830 NAMRATA Administration Ticagrelor 60 mg 11/27/17 14:45 11/29/17 21:30 Brilinta PO 60 mg BID NAMRATA Administration ASSESSMENT/PLAN:
[2017-11-30 08:54] LABS: BASO % 0.4 % (0-2.0); EOS % 1.2 % (0-4.5); HEMATOCRIT 40.5 % (35.4-49); HEMOGLOBIN 13.4 GM/dL (11.7-16.9); LYMPH % 14.8 % (8-40); MCH 28.9 pg (25.7-33.7); MCHC 33.2 g/dl (32.0-35.9); MEAN PLT VOLUME 9.5 fl (7.5-11.1); MONO % 8.4 % (3.8-10.2); NEUT % 75.2 % (42.8-82.8); PLATELET COUNT 167 K/MM3 (134-434); RBC 4.65 M/mm3 (4.00-5.60); WHITE BLOOD COUNT 4.9 K/mm3 (4.0-10.0)
[2017-11-30 08:58] VITALS: BP 121/70; PULSE 64; TEMP 99
[2017-11-30] MEDS ORDERED: PT OWN MED DRAWER 7, Y5N ONE (09:03)
[2017-11-30 09:16] LABS: ANION GAP 8 (8-16); BLOOD UREA NITROGEN 11 mg/dL (7-18); CALCIUM 8.7 mg/dL (8.5-10.1); CHLORIDE 104 mmol/L (98-107); CO2 26 mmol/L (21-32); CREATININE 1.2 mg/dL (0.7-1.3); GLUCOSE,RANDOM 217 mg/dL (74-106); POTASSIUM 4.6 mmol/L (3.5-5.1); SODIUM 138 mmol/L (136-145)
[2017-11-30] MEDS: TAMSULOSIN HCL 0.4 MG CAP.ER.24H (FP) PO SCH (09:18)
[2017-11-30] MEDS: ASPIRIN COATED 81 MG TABLET.EC PO SCH (09:18)
[2017-11-30] MEDS: metoPROLOL SUCCINATE 25 MG TAB.SR.24H (FP) PO SCH (09:18)
[2017-11-30] MEDS: FLUoxetine HCL 20 MG CAPSULE (FP) PO SCH (09:18)
[2017-11-30] MEDS: PRAMIPEXOLE DIHYDROCHLORIDE 0.25 MG TABLET PO SCH (09:19)
[2017-11-30] MEDS: TICAGRELOR 60 MG TABLET PO SCH (09:19)
[2017-11-30] MEDS: risperiDONE 1 MG TABLET (FP) PO SCH (09:19)
[2017-11-30] MEDS: SOLIFENACIN SUCCINATE 5 MG TAB (FP) PO SCH (09:19)
[2017-11-30] MEDS: PANTOPRAZOLE 40 MG TABLET (FP) PO SCH (09:19)
[2017-11-30] MEDS ORDERED: ENALAPRIL MALEATE 10 MG TABLET (FP) PO SCH (10:00)
--- NOTE | 2017-11-30 12:49 | DS ---
Physical Exam: SUBJECTIVE: Patient seen and examined OBJECTIVE: Vital Signs Period Temp Pulse Resp BP Sys/Velasco Pulse Ox Last 24 Hr 98.2 F-99 F 64-72 18-20 113-132/65-78 94-95 PHYSICAL EXAM GENERAL: Awake, alert, and fully oriented, in no acute distress. LUNGS: Breath sounds equal, clear to auscultation bilaterally. No wheezes, and no crackles. No accessory muscle use. HEART: Regular rate and rhythm, normal S1 and S2 ABDOMEN: Soft, nontender, not distended, normoactive bowel sounds, no guarding, no rebound, no masses UPPER EXTREMITIES: 2+ pulses, warm, well-perfused. No cyanosis. No clubbing. No peripheral edema. LOWER EXTREMITIES: 2+ pulses, warm, well-perfused. No calf tenderness. No peripheral edema. NEUROLOGICAL: Cranial nerves II-XII intact. Normal speech. LABS Laboratory Results - last 24 hr 11/29/17 11/29/17 11/30/17 16:26 21:28 08:30 WBC 4.9 RBC 4.65 Hgb 13.4 Hct 40.5 MCV 87.0 MCH 28.9 MCHC 33.2 RDW 13.0 Plt Count 167 MPV 9.5 Neutrophils % 75.2 Lymphocytes % 14.8 D Monocytes % 8.4 Eosinophils % 1.2 Basophils % 0.4 Nucleated RBC % 0 Sodium Potassium Chloride Carbon Dioxide Anion Gap BUN Creatinine POC Glucometer 164 291 Random Glucose Calcium Magnesium 11/30/17 11/30/17 08:30 11:01 WBC RBC Hgb Hct MCV MCH MCHC RDW Plt Count MPV Neutrophils % Lymphocytes % Monocytes % Eosinophils % Basophils % Nucleated RBC % Sodium 138 Potassium 4.6 Chloride 104 Carbon Dioxide 26 Anion Gap 8 BUN 11 D Creatinine 1.2 POC Glucometer 315 Random Glucose 217 H D Calcium 8.7 Magnesium 2.0 HOSPITAL COURSE: Date of Admission:11/27/17 Date of Discharge: 11/30/17 Pre hospital course 67 year-old male with a PMH significant for HTN, HLD, IDDM, kidney stones, BPH, restless leg syndrome, and dementia. Hospitalized at [facility] on 11/18/17 for chest pain, had a positive stress test, and was transferred on 11/19 to [facility] for cardiac catheterization and a stent was placed on 11/20/17. Patient came to the ED today for profound weakness. He reports changes to his insulin regimen over the past two weeks by his PCP. About two weeks ago, the PCP changed the type of insulin the patient was taking. Three days ago, the PCP stopped all insulin and transitioned patient to Actos. This morning the patient awoke feeling very weak and had four episodes of vomiting. He has also been experiencing frequent urination x 4-5 days. ED course (1) HCO3 17, AG 21, Glucose 503, corrected Na 140, K 4.4 (2) BUN 40 Cr 2.2 (3) Trop 0.04 Subsequent hospital course DKA IDDM --started on insulin drip, anion gap quickly closed 21-->8; continued on IV fluids +K, given Levemir 20U, started on diet --seen and evaluated by endocrinology on 11/29, Levemir lowered to 18U qhs and two sliding scales ordered, one for AC meals, one for qhs --metformin restarted on discharge --discharged on Glargine and Novolog --follow up with Dr. Clarke or [facility] YUNG, resolved --Cr 1.1 Coronary artery disease s/p stent 11/20/17 Elevated troponin --continued ticegrelor --troponins downtrending, no events on tele, ECG without acute change Hypertension --BP stable --continued Toprol XL --restarted home enalapril when YUNG resolved Hyperlipidemia --continued Lipitor Kidney stones --no acute issues BPH --continued flomax, oxybutinin Restless leg syndrome --continued Mirapex Dementia --continued Prozac, risperdal Minutes to complete discharge: 35 Discharge Summary Reason For Visit: DIABETIC KETOACIDOSIS Current Active Problems Acute renal insufficiency (Acute) DKA (diabetic ketoacidoses) (Acute) Hyperglycemia (Acute) Condition: Improved - Instructions Diet, Activity, Other Instructions: Two prescriptions have been sent to your pharmacy, one for a long-acting (slow) insulin and the other for a short-acting (fast) insulin. During the day, before every meal, you should fingerstick and then give yourself the following coverage of Novolog: Before Breakfast, Lunch, and Dinner: 101-150 2 units 151-200 4 units 201-250 6 units 251-300 8 units 301-350 10 units 351-400 12 units over 400 12 units Every night, at bedtime, you should fingerstick and then give yourself the following coverage of Novolo-150 0 units 151-200 0 units 201-250 2 units 251-300 4 units 301-350 6 units 351-400 8 units over 400 8 units Every night, at bedtime, give yourself 18 units of Glargine. It is very important you follow up with a doctor to help you manage your diabetes. You may choose to see Dr. Magana who is a diabetes doctor. His contact information is enclosed. You may also choose to follow up with Dr. Felix at the [facility]. Her information is also enclosed. Referrals: Og Clarke MD [Staff Physician] - 1 Week Phani Felix MD [Staff Physician] - 1 Week Disposition: HOME - Home Medications Comprehensive Discharge Medication List: Ambulatory Orders Aspirin [Aspirin EC] 0 mg PO DAILY 11/27/17 Atorvastatin Ca [Lipitor] 0 mg PO HS 11/27/17 Enalapril Maleate [Vasotec] 10 mg PO DAILY 11/27/17 Fluoxetine HCl [Prozac -] 20 mg PO DAILY 11/27/17 Metoprolol Succinate [Toprol Xl] 0 mg PO ASDIR 11/27/17 Omeprazole 40 mg PO DAILY 11/27/17 Oxybutynin Chloride [Oxybutynin Chloride ER] 10 mg PO DAILY 11/27/17 Pramipexole Di-HCl [Mirapex] 0.25 mg PO DAILY 11/27/17 Risperidone 1 mg PO DAILY 11/27/17 Tamsulosin HCl [Flomax -] 0.4 mg PO DAILY 11/27/17 Ticagrelor [Brilinta] 0 mg PO ASDIR 11/27/17 Insulin (Novolog) [Novolog Flexpen] 0 units SQ ASDIR #1 syringe 11/30/17 Insulin Glargine,Hum.rec.anlog [Basaglar Kwikpen U-100] 18 unit SQ HS #1 insuln.pen 11/30/17 This patient is new to me today: No Emergency Visit: Yes ED Registration Date: 11/27/17 Care time: The patient presented to the Emergency Department on the above date and was hospitalized for further evaluation of their emergent condition. Critical Care patient: No - Discharge Referral Referred to [facility] Med P.C.: No
== END 2017-11-30 14:38 | disposition home or self-care (01) | DRG 682 ==
LOC: JER 10:07 → UNDOADMIN 12:48 → JERBED 12:48 → J4W 11-28 01:01 → JERBED 11-28 01:01
PROVIDERS: ADMIT Hospitalist; ATTEND Nurse Practitioner Acute Care
DX: N17.9 Acute kidney failure, unspecified (principal); E11.10 Type 2 diabetes mellitus with ketoacidosis without coma; I25.10 Atherosclerotic heart disease of native coronary artery without angina pectoris; Z98.61 Coronary angioplasty status; Z79.4 Long term (current) use of insulin; E78.5 Hyperlipidemia, unspecified; I10 Essential (primary) hypertension; N40.0 Benign prostatic hyperplasia without lower urinary tract symptoms; G30.9 Alzheimer's disease, unspecified; F02.80 Dementia in other diseases classified elsewhere, unspecified severity, without behavioral disturbance, psychotic disturbance, mood disturbance, and anxiety; G25.81 Restless legs syndrome; N20.0 Calculus of kidney; N28.9 Disorder of kidney and ureter, unspecified
CPT/HCPCS: 36415; 36600; 71045-TC-FY; 80048; 80053; 81003; 82009; 82550; 82803; 82962; 83036; 83605; 83690; 83735; 84100; 84484; 85025; 87040; 93005; 93010; 99284-25; J1644; J2794; J3480; J7030

== ENCOUNTER 2018-08-03 01:03 | Emergency (ER) | payer OTHER ==
--- NOTE | 2018-08-03 01:14 | PDOC ---
History of Present Illness - General Chief Complaint: Blood Sugar Problem Stated Complaint: LOW BLOOD SUGAR Time Seen by Provider: 08/03/18 01:13 - History of Present Illness Initial Comments: 08/03/18 01:13 Mr. Corrales is a 67 yo male w/ pmh of HTN, HLD, DM, BPH, and alzheimer's who presents for evaluation of altered mental status. Per who is with him he was in his normal state of health until after dinner when he had an episode of shaking and sweating and then started flailing around. EMS was called and noted BGM to be 25. They gave 1 L D10 en route to ED and had repeat BGM in 100's. Patient reportedly takes lantis / humalog injections for his DM. reports she administers insulin for him. Patient somnolent upon presentation. Past History - Past Medical History Allergies/Adverse Reactions: Allergies Allergy/AdvReac Type Severity Reaction Status Date / Time No Known Drug Allergies Allergy Verified 08/03/18 01:20 Home Medications: Ambulatory Orders Aspirin [Aspirin EC] 81 mg PO DAILY 11/27/17 Atorvastatin Ca [Lipitor] 80 mg PO HS 11/27/17 Fluoxetine HCl [Prozac -] 20 mg PO DAILY 11/27/17 Metoprolol Succinate [Toprol Xl] 25 mg PO ASDIR 11/27/17 Omeprazole 40 mg PO DAILY 11/27/17 Risperidone 1 mg PO DAILY 11/27/17 Tamsulosin HCl [Flomax -] 0.4 mg PO DAILY 11/27/17 Ticagrelor [Brilinta] 90 mg PO BID 11/27/17 Diphenhydramine [Benadryl Capsule -] 50 mg PO PRN 03/03/18 Oxybutynin Chloride [Oxybutynin Chloride ER] 10 mg PO DAILY 03/03/18 Pramipexole Di-HCl [Mirapex] 0.25 mg PO DAILY 03/03/18 Insulin Glargine,Hum.rec.anlog [Lantus Solostar PEN (NF)] 10 units SQ BID #2 pen 03/10/18 Insulin Sliding Scale [Novolog Vial Sliding Scale -] 1 vial SQ HS units Insulin Sliding Scale [Novolog Vial Sliding Scale -] 1 vial SQ TIDAC units 10/22 Anemia: No Asthma: No Cancer: No Cardiac Disorders: Yes CVA: No COPD: No CHF: No Dementia: Yes Diabetes: Yes GI Disorders: No Disorders: Yes (Renal stones/Lithotripsy) HTN: Yes Hypercholesterolemia: Yes Kidney Stones: Yes Liver Disease: No Seizures: No Thyroid Disease: No - Surgical History Abdominal Surgery: No Appendectomy: No Cardiac Surgery: Yes (C.CATH/STENTS) Cholecystectomy: No Lung Surgery: No Neurologic Surgery: No Orthopedic Surgery: No - Suicide/Smoking/Psychosocial Hx Smoking History: Never smoked Have you smoked in the past 12 months: No Hx Alcohol Use: No Drug/Substance Use Hx: No Substance Use Type: None Hx Substance Use Treatment: No Review of Systems - Review of Systems Comments:: 08/03/18 01:14 Unable to obtain further. *Physical Exam - Physical Exam Comments: 08/03/18 01:14 GENERAL: +Sleepy however arousable with voice stimulation. AOx3. In no acute distress. HEAD: No signs of trauma, normocephalic, atraumatic EYES: PERRLA, EOMI, sclera anicteric, conjunctiva clear ENT: Auricles normal inspection, hearing grossly normal, nares patent, oropharynx clear without exudates. Moist mucosa NECK: Normal ROM, supple, no lymphadenopathy, JVD, or masses LUNGS: No distress, speaks full sentences, clear to auscultation bilaterally HEART: Regular rate and rhythm, normal S1 and S2, no murmurs, rubs or gallops, peripheral pulses normal and equal bilaterally. ABDOMEN: Soft, nontender, normoactive bowel sounds. No guarding, no rebound. No masses EXTREMITIES: Normal inspection, Normal range of motion, no edema. No clubbing or cyanosis. NEUROLOGICAL: Cranial nerves II through XII grossly intact. Normal speech, normal gait, no focal sensorimotor deficits SKIN: Warm, Dry, normal turgor, no rashes or lesions noted. ED Treatment Course - LABORATORY CBC & Chemistry Diagram: 08/03/18 01:55 08/03/18 01:55 Medical Decision Making - Medical Decision Making 08/03/18 02:09 Mr. Corrales is a 67 yo male w/ pmh as described who presents for evaluation of hypoglycemia as described. Patient takes lantis and novalog and will likely need admission for repeated BGMs after ruling out acute process. Patient given sandwich and juice following D10 administration by EMS. 08/03/18 03:41 Patient BGM in ED 63 initially, patient given orange juice and sandwich - repeat BGM 56. Patient given D50 push. Next BGM 249. Will re-evaluate BGM in 3 hours. 08/03/18 06:29 Repeat BGM 201. 08/03/18 06:39 Patient signed out to Dr. Abraham for further observation. Laboratory Results - last 24 hr 08/03/18 08/03/18 08/03/18 01:51 01:55 01:55 WBC 5.4 RBC 4.23 Hgb 13.2 Hct 37.2 MCV 87.9 MCH 31.2 MCHC 35.5 RDW 12.7 Plt Count 149 D MPV 9.0 Absolute Neuts (auto) 4.1 Neutrophils % 76.7 Lymphocytes % 12.6 Monocytes % 8.2 Eosinophils % 2.0 D Basophils % 0.5 Nucleated RBC % 0 Sodium 140 Potassium 3.7 Chloride 105 Carbon Dioxide 31 Anion Gap 4 L BUN 16 Creatinine 1.1 Creat Clearance w eGFR > 60 POC Glucometer 63.01651 Random Glucose 54 L Calcium 8.4 L Total Bilirubin 0.3 AST 9 L ALT 18 Alkaline Phosphatase 55 Total Protein 6.3 L Albumin 3.6 08/03/18 08/03/18 02:29 03:11 WBC RBC Hgb Hct MCV MCH MCHC RDW Plt Count MPV Absolute Neuts (auto) Neutrophils % Lymphocytes % Monocytes % Eosinophils % Basophils % Nucleated RBC % Sodium Potassium Chloride Carbon Dioxide Anion Gap BUN Creatinine Creat Clearance w eGFR POC Glucometer 56.44278 249.20303 Random Glucose Calcium Total Bilirubin AST ALT Alkaline Phosphatase Total Protein Albumin 08/03/18 06:43 *DC/Admit/Observation/Transfer Diagnosis at time of Disposition: Hypoglycemia - Discharge Dispostion Condition at time of disposition: Fair Decision to Admit order: Yes - Referrals - Patient Instructions - Post Discharge Activity
--- NOTE | 2018-08-03 01:26 | PDOC ---
Attending Attestation - HPI HPI: 08/03/18 01:52 67YOM, with significant past medical history of DM, HTN, HLD, and BPH, who presents to the ED hypoglycemic. As per at bedside, the patient began to depict seizure-like activity "swinging his arms around and knocking objects over ," prompting them to call for EMS. Upon EMS's arrival, they note his blood glucose level was 25 at which time he received D10 in the field and his blood glucose level elevated to the 100s. Upon his arrival the patient was lethargic and blood glucose level was in the 60s. Allergies: NKDA <Sharmila Glass - Last Filed: 08/03/18 01:52> - Resident Resident Name: Ga Sauceda - ED Attending Attestation I have performed the following: I have examined & evaluated the patient, The case was reviewed & discussed with the resident, I agree w/resident's findings & plan - Physicial Exam PE: 08/03/18 02:14 Agree with resident exam. - Medical Decision Making 08/03/18 03:31 CXR same as old 08/03/18 04:51 Pt os on long acting insulin and his blood sugar keeps dropping. We will sign him out to the day team, as hospitalist doesn't want to accept patient at this time <Leslie Rios - Last Filed: 08/03/18 04:51> Heart Score/ECG Review - ECG Intrepretation Rhythm: Regular Rhythm - Anderson Anderson: Normal - P and DC Delta Wave(s) Present: No WPW: No - QRS Poor R Wave Progression: No Q Wave Present: No - ST and T Early Repolarization: No Non Specific ST-T Wave changes: No Flattened T Waves: No - ECG Impressions Normal ECG: Yes Non-specific ST Elevation: No Ischemic Changes: No Bradycardia: Yes Torsades jovno Pointes: No WPW: No <Leslie Rios - Last Filed: 08/03/18 04:51> Attestations - Attestations 08/03/18 02:00 Documentation prepared by Sharmila Glass, acting as medical billing assistant for Leslie Rios MD. <Sharmila Glass - Last Filed: 08/03/18 01:52>
[2018-08-03 01:31] VITALS: BMI 24.6
[2018-08-03 02:05] LABS: BASO % 0.5 % (0-2.0); HEMATOCRIT 37.2 % (35.4-49); HEMOGLOBIN 13.2 GM/dL (11.7-16.9); LYMPH % 12.6 % (8-40); MCH 31.2 pg (25.7-33.7); MCHC 35.5 g/dl (32.0-35.9); MEAN CELL VOLUME 87.9 fl (80-96); MONO % 8.2 % (3.8-10.2); NEUT % 76.7 % (42.8-82.8); PLATELET COUNT 149 K/MM3 (134-434); RBC 4.23 M/mm3 (4.00-5.60); RDW 12.7 % (11.9-15.9); WHITE BLOOD COUNT 5.4 K/mm3 (4.0-10.0)
[2018-08-03] MEDS ORDERED: DEXTROSE 50%-WATER - 25 GM/50 ML VIAL IVPUSH ONE (02:31)
[2018-08-03] MEDS ORDERED: DEXTROSE 50%-WATER 25 GM/50 ML DISP.SYRIN ONE (02:37)
[2018-08-03 03:38] LABS: CO2 31 mmol/L (21-32); CREATININE 1.1 mg/dL (0.55-1.3)
[2018-08-03 03:39] LABS: ALBUMIN 3.6 g/dl (3.4-5.0)
[2018-08-03 07:24] LABS: ALK PHOS 55 U/L (45-117); ANION GAP 4 MMOL/L (8-16); BILIRUBIN,TOTAL 0.3 mg/dL (0.2-1); BLOOD UREA NITROGEN 16 mg/dL (7-18); CALCIUM 8.4 mg/dL (8.5-10.1); CHLORIDE 105 mmol/L (98-107); GLUCOSE,RANDOM 54 mg/dL (74-106); POTASSIUM 3.7 mmol/L (3.5-5.1); SGOT/AST 9 U/L (15-37); SGPT/ALT 18 U/L (13-61); SODIUM 141 mmol/L (136-145); TOT PROT 6.3 g/dl (6.4-8.2)
--- NOTE | 2018-08-03 07:36 | PDOC ---
*Physical Exam - Vital Signs Last Vital Signs Temp Pulse Resp BP Pulse Ox 97.4 F L 67 19 134/81 97 08/03/18 01:03 08/03/18 01:03 08/03/18 01:03 08/03/18 01:03 08/03/18 01:03 ED Treatment Course - LABORATORY CBC & Chemistry Diagram: 08/03/18 01:55 08/03/18 01:55 - ADDITIONAL ORDERS Additional order review: Laboratory Results 08/03/18 08/03/18 08/03/18 03:11 02:29 01:55 Sodium 141 Potassium 3.7 Chloride 105 Carbon Dioxide 31 Anion Gap 4 L BUN 16 Creatinine 1.1 Creat Clearance w eGFR > 60 POC Glucometer 249.63557 56.67109 Random Glucose 54 L Calcium 8.4 L Total Bilirubin 0.3 AST 9 L ALT 18 Alkaline Phosphatase 55 Total Protein 6.3 L Albumin 3.6 08/03/18 01:51 Sodium Potassium Chloride Carbon Dioxide Anion Gap BUN Creatinine Creat Clearance w eGFR POC Glucometer 63.32762 Random Glucose Calcium Total Bilirubin AST ALT Alkaline Phosphatase Total Protein Albumin 08/03/18 08/03/18 08/03/18 03:11 02:29 01:55 RBC 4.23 MCV 87.9 MCHC 35.5 RDW 12.7 MPV 9.0 Neutrophils % 76.7 Lymphocytes % 12.6 Monocytes % 8.2 Eosinophils % 2.0 D Basophils % 0.5 POC Glucometer 249.10704 56.05371 08/03/18 01:51 RBC MCV MCHC RDW MPV Neutrophils % Lymphocytes % Monocytes % Eosinophils % Basophils % POC Glucometer 63.22071 - Medications Given in the ED: ED Medications Discontinued Medications Generic Name Dose Route Start Last Admin Trade Name Freq PRN Reason Stop Dose Admin Dextrose 25 gm 08/03/18 02:31 08/03/18 02:44 D50w (Vial) - IVPUSH 08/03/18 02:32 25 gm NOW ONE Administration Medical Decision Making - Medical Decision Making 08/03/18 07:[address] Sauceda. Patient is 67M here today with hypoglycemia. Patient states that he only took his normal amount of lantus today. Suspect accidental overdose. Last bgm 201, but s/p d10, d50, food. Still trending downward, likely with need obs admission. 08/03/18 09:23 Sugar levels rising. Will discharge home. *DC/Admit/Observation/Transfer Diagnosis at time of Disposition: Hypoglycemia - Discharge Dispostion Condition at time of disposition: Good - Referrals Referrals: Jean Artis MD [Primary Care Provider] - - Patient Instructions Printed Discharge Instructions: DI for Hyperglycemia -- Adult Additional Instructions: Please return if you have any new, worsening or concerning symptoms. Please do not give insulin until your dosing method is checked by your primary care doctor. - Post Discharge Activity
[2018-08-03 08:20] VITALS: BP 150/77; PULSE 56; TEMP 97.6
--- NOTE | 2018-08-03 10:47 | EKG ---
Test Reason : Blood Pressure : / mmHG Vent. Rate : 052 BPM Atrial Rate : 052 BPM P-R Int : 178 ms QRS Dur : 102 ms QT Int : 448 ms P-R-T Axes : 059 051 055 degrees QTc Int : 416 ms SINUS BRADYCARDIA OTHERWISE NORMAL ECG WHEN COMPARED WITH ECG OF 03-MAR-2018 11:50, VENT. RATE HAS DECREASED BY 33 BPM Confirmed by GUILLERMO GAFFNEY MD ([id number]) on 08/03/2018 10:46:40 AM Referred By: Confirmed By:GUILLERMO GAFFNEY MD
== END 2018-08-03 09:41 | disposition home or self-care (01) ==
LOC: JER 01:03 → UNDOADMOB 03:15 → JERBED 03:15 → JER 09:41
PROC: 3E033GC Introduction of Other Therapeutic Substance into Peripheral Vein, Percutaneous Approach (ICD-10-PCS; principal; 2018-08-03)
DX: E11.649 Type 2 diabetes mellitus with hypoglycemia without coma (principal); Z79.4 Long term (current) use of insulin; I25.10 Atherosclerotic heart disease of native coronary artery without angina pectoris; I10 Essential (primary) hypertension; Z95.5 Presence of coronary angioplasty implant and graft; E78.00 Pure hypercholesterolemia, unspecified; G30.9 Alzheimer's disease, unspecified; F02.80 Dementia in other diseases classified elsewhere, unspecified severity, without behavioral disturbance, psychotic disturbance, mood disturbance, and anxiety; Z87.442 Personal history of urinary calculi
CPT/HCPCS: 36415; 71045-TC-FY; 80053; 82962; 85025; 93005; 93010; 96374; 99285-25

== ENCOUNTER 2019-05-09 11:20 | Emergency (ER) | payer BC, OTHER ==
[2019-05-09 11:50] VITALS: BMI 26.4
[2019-05-09] MEDS ORDERED: LACTATED RINGERS SOLUTION 1000 ML INFUS.BAG IV ONE (12:24)
--- NOTE | 2019-05-09 12:35 | PDOC ---
Attending Attestation - Resident Resident Name: Raul Alejandro - ED Attending Attestation I have performed the following: I have examined & evaluated the patient, The case was reviewed & discussed with the resident, I agree w/resident's findings & plan, Exceptions are as noted - HPI HPI: 05/09/19 12:32 68yo male with hx of DM with a syncopal episode. Pt checked his glucose around 630a - states gave himself 18u lantus and 8u humalog at that time and then ate breakfast. His found him on his knees about to pass out when she helped to lower him to the ground. There was LOC, but no head injury. She checked his glucose and it was 60. She did give him something to eat. States he was diaphoretic and clammy. Pt denies antonio, no cp/sob. no abd pain. States L knee pain , L posterior calf pain. - Physicial Exam PE: 05/09/19 12:47 Gen: aaox3, nad heent: EOMI, MMM, PERRL neck: supple heart: +s1s2 reg lungs: cta b/l abd: soft, nt/nd +bs ext: no c/c/e, L calf ttp and posterior knee ttp, muscle strength 5/5 UE and LE , knee pain with active and passive rom with flexion, pulses intact, neurovasc intact distal, L anterior knee ttp, no swelling or effusion neuro: cn ii-xii grossly intact, no focal deficits - Medical Decision Making 05/09/19 12:48 a/p: 68yo male with a syncopal episode at home - suspect secondary to low glucose -will monitor glu -will send labs, trop -knee xray, ultrasound LLE -head ct -cxr -will monitor and reassess -ivf hydration -pain control of L knee pain 05/09/19 14:00 trop neg glu [address] neg 05/09/19 14:00 dvt neg 05/09/19 14:31 knee xray neg 05/09/19 14:49 po challenge given 05/09/19 15:05 repeat trop ordered 05/09/19 15:17 pt ambulatory with a steady gait 05/09/19 15:44 repeat trop neg 05/09/19 15:44 repeat glu 183 05/09/19 16:05 glu has been stable pt has been ambulatory without any complaints of lightheaded, dizziness suspect hypoglycemia caused the fall stable for dc to home Heart Score/ECG Review - ECG Intrepretation Comment:: 05/09/19 12:49 sinus abida at 55, nl axis, nl interval, no acute st/t wave findings
[2019-05-09 12:46] LABS: BASO % 0.3 % (0-2.0); HEMOGLOBIN 14.6 GM/dL (11.7-16.9); LYMPH % 7.2 % (8-40); MCH 30.5 pg (25.7-33.7); MCHC 34.7 g/dl (32.0-35.9); NEUT % 86.5 % (42.8-82.8); PLATELET COUNT 162 K/MM3 (134-434); RBC 4.77 M/mm3 (4.00-5.60); RDW 13.3 % (11.9-15.9)
[2019-05-09] MEDS ORDERED: ACETAMINOPHEN 1000 MG/100 ML VIAL (NON FORMULARY) IVPB ONE (12:46)
[2019-05-09] MEDS ORDERED: ACETAMINOPHEN INJECTION 100 ML IVPB ONE (12:50)
--- NOTE | 2019-05-09 13:01 | PDOC ---
History of Present Illness - General Chief Complaint: Syncope/Near Syncope Stated Complaint: FALL Time Seen by Provider: 05/09/19 11:24 - History of Present Illness Initial Comments: Pt is a 67 y/o M w/ PMH of HTN, HLD, DM, BPH, and alzheimer's who presents to our Emergency Department due to a syncopal episode this morning. Pt's family at bedside. Per niece and at bedside, when pt woke from bed this morning, his BGM measured 200; pt was subsequently administered 18 U of Lantus as well as 8 U of Humulog. Shortly afterwards, pt lost consciousness; family does not believe that pt injured his head during the fall. Pt states that before he lost consciousness, he placed all of his weight on his left knee. Pt states he has been suffering from diabetic neuropathy, specifically in his left knee and that today's episode may have exacerbated his chronic knee pain. Pt was recently in [facility] for similar symptoms approximately 2 months ago. Denies chest pain, shortness of breath, or nausea/vomiting. 05/09/19 13:16 05/09/19 13:19 05/09/19 16:31 05/09/19 16:37 Past History - Past Medical History Allergies/Adverse Reactions: Allergies Allergy/AdvReac Type Severity Reaction Status Date / Time No Known Drug Allergies Allergy Verified 05/09/19 12:46 Home Medications: Ambulatory Orders Aspirin [Aspirin EC] 81 mg PO DAILY 11/27/17 Atorvastatin Ca [Lipitor] 80 mg PO HS 11/27/17 Fluoxetine HCl [Prozac -] 20 mg PO DAILY 11/27/17 Omeprazole 40 mg PO DAILY 11/27/17 Insulin Sliding Scale [Novolog Vial Sliding Scale -] 1 vial SQ HS units Insulin Sliding Scale [Novolog Vial Sliding Scale -] 1 vial SQ TIDAC units 10/22 Insulin Glargine,Hum.rec.anlog [Lantus Solostar PEN (NF)] 18 units SQ BID Anemia: No Asthma: No Cancer: No Cardiac Disorders: Yes CVA: No COPD: No CHF: No Dementia: Yes Diabetes: Yes (Insulin Dependent) GI Disorders: No Disorders: Yes (Renal stones/Lithotripsy) HTN: Yes Hypercholesterolemia: Yes Kidney Stones: Yes Liver Disease: No Psychiatric Problems: Yes (Depression) Seizures: No Thyroid Disease: No - Surgical History Abdominal Surgery: No Appendectomy: No Cardiac Surgery: Yes (C.CATH/STENTS) Cholecystectomy: No Lung Surgery: No Neurologic Surgery: No Orthopedic Surgery: No - Psycho Social/Smoking Cessation Hx Smoking History: Never smoked Have you smoked in the past 12 months: No Hx Alcohol Use: No Drug/Substance Use Hx: No Substance Use Type: None Hx Substance Use Treatment: No Review of Systems - Review of Systems HEENTM: Yes: Blurred Vision Respiratory: No: Shortness of Breath Cardiac (ROS): No: Chest Pain ABD/GI: No: Constipated, Diarrhea : No: Burning, Dysuria Musculoskeletal: Yes: Joint Pain Neurological: Yes: Symptoms reported *Physical Exam - Vital Signs Last Vital Signs Temp Pulse Resp BP Pulse Ox 97.6 F 64 18 110/77 100 05/09/19 11:36 05/09/19 11:36 05/09/19 11:36 05/09/19 11:36 05/09/19 11:36 - Physical Exam Comments: 05/09/19 16:17 NAD, AAOx3 RRR S1S2 CTA b/l NDNT No HSM CN 2-12 intact. Gait observed-no ataxia or wide based gait. SILT. No CCE Heart Score/ECG Review - ECG Impressions Comment:: 05/09/19 13:21 sinus abida at 55, nl axis, nl interval, no acute st/t wave findings ED Treatment Course - LABORATORY CBC & Chemistry Diagram: 05/09/19 12:00 05/09/19 12:00 - ADDITIONAL ORDERS Additional order review: Laboratory Results 05/09/19 11:29 POC Glucometer 101 05/09/19 05/09/19 12:00 11:29 RBC 4.77 MCV 88.0 MCHC 34.7 RDW 13.3 MPV 10.0 Neutrophils % 86.5 H Lymphocytes % 7.2 L D Monocytes % 5.0 Eosinophils % 1.0 Basophils % 0.3 POC Glucometer 101 - RADIOLOGY Radiology Studies Ordered: Category Date Time Status HEAD CT WITHOUT CONTRAST [CT] Stat CT Scan 05/09/19 12:28 Ordered - Medications Given in the ED: ED Medications Discontinued Medications Generic Name Dose Route Start Last Admin Trade Name Freq PRN Reason Stop Dose Admin Lactated Ringer's 1,000 ml 05/09/19 12:24 05/09/19 12:40 Lactated Ringers Solution IV 05/09/19 12:25 1,000 ml ONCE ONE Administration Medical Decision Making - Medical Decision Making 05/09/19 13:02 Cbc w/ diff, CMP, Trop, Head CT, BGM Q1H, ISS ordered 05/09/19 13:03 Will also order knee xray and ultrasound as pt reportedly bared excess weight on his left knee during fall. 05/09/19 13:[address] negative for any acute pathology. 05/09/19 13:55 CXR neg for any acute pathology. 05/09/19 13:58 No evidence of DVT in LLE as seen on Duplex u/s. 05/09/19 16:05 BGM 183. Will d/c home with instructions to see PMD tomorrow. Also given Endocrinology referral. 05/09/19 16:06 Pt ambulatory with steady gate. Repeat trop is negative. Able to tolerate PO intake as well. 05/09/19 16:38 Discharge - Discharge Information Problems reviewed: Yes Clinical Impression/Diagnosis: Hypoglycemia Condition: Improved Disposition: HOME - Admission No - Follow up/Referral Referrals: Robert Collins MD [Primary Care Provider] - Og Clarke MD [Staff Physician] - - Patient Discharge Instructions Patient Printed Discharge Instructions: DI for Hypoglycemia Additional Instructions: You were seen in the Emergency Room due to a fall you had. This is most likely due to a very low blood sugar level. Please see your primary care doctor tomorrow morning. We have given you a referral to see an drag sawyer, a reception specialist, to help you manage your diabetes. Please return to the emergency room immediately if you begin to experience chest pain, shortness of breath, lightheadedness, or an any other abnormal symptoms. - Post Discharge Activity
[2019-05-09 13:13] LABS: MAGNESIUM 2.1 mg/dL (1.8-2.4)
[2019-05-09 13:23] LABS: ALBUMIN 4.2 g/dl (3.4-5.0); BILIRUBIN,TOTAL 0.5 mg/dL (0.2-1); BLOOD UREA NITROGEN 28.5 mg/dL (7-18); CALCIUM 9.1 mg/dL (8.5-10.1); CREATININE 1.4 mg/dL (0.55-1.3); POTASSIUM 4.6 mmol/L (3.5-5.1); TOT PROT 7.1 g/dl (6.4-8.2)
[2019-05-09 13:32] LABS: INR 0.91 (0.83-1.09); PROTHROMBIN TIME (PATIENT) 10.7 SEC (9.7-13.0)
[2019-05-09 14:27] LABS: URINE APPEARANCE CLEAR; URINE BILIRUBIN NEGATIVE (NEGATIVE); URINE COLOR YELLOW; URINE GLUCOSE (UA) 2+ (NEGATIVE); URINE KETONE NEGATIVE (NEGATIVE); URINE LEUK ESTERASE NEGATIVE (NEGATIVE); URINE NITRITE NEGATIVE (NEGATIVE); URINE PROTEIN TRACE (NEGATIVE); URINE UROBILINOGEN 0.2 mg/dL (0.2-1.0)
[2019-05-09 16:11] VITALS: BP 128/75; PULSE 76; TEMP 98.3
[2019-05-09] MEDS ORDERED: INSULIN SLIDING SCALE (NOVOLOG) 1 VIAL SQ SCH (16:30)
--- NOTE | 2019-05-10 10:08 | EKG ---
Test Reason : Blood Pressure : / mmHG Vent. Rate : 055 BPM Atrial Rate : 055 BPM P-R Int : 164 ms QRS Dur : 076 ms QT Int : 418 ms P-R-T Axes : 046 045 043 degrees QTc Int : 399 ms SINUS BRADYCARDIA OTHERWISE NORMAL ECG WHEN COMPARED WITH ECG OF 03-AUG-2018 02:11, NO SIGNIFICANT CHANGE WAS FOUND Confirmed by GUILLERMO GAFFNEY MD ([id number]) on 05/10/2019 10:07:44 AM Referred By: Confirmed By:GUILLERMO GAFFNEY MD
== END 2019-05-09 16:15 | disposition home or self-care (01) ==
LOC: JER 11:20
PROC: 3E033NZ Introduction of Analgesics, Hypnotics, Sedatives into Peripheral Vein, Percutaneous Approach (ICD-10-PCS; principal; 2019-05-09)
DX: E11.649 Type 2 diabetes mellitus with hypoglycemia without coma (principal); Z79.4 Long term (current) use of insulin; W18.39XA Other fall on same level, initial encounter; Y93.89 Activity, other specified; Y92.038 Other place in apartment as the place of occurrence of the external cause; Y99.8 Other external cause status; I25.10 Atherosclerotic heart disease of native coronary artery without angina pectoris; I10 Essential (primary) hypertension; Z95.5 Presence of coronary angioplasty implant and graft; E78.00 Pure hypercholesterolemia, unspecified; F03.90 Unspecified dementia, unspecified severity, without behavioral disturbance, psychotic disturbance, mood disturbance, and anxiety; F32.9 Major depressive disorder, single episode, unspecified; Z87.442 Personal history of urinary calculi
CPT/HCPCS: 36415; 70450-TC; 71045-TC-FY; 73562-TC-LT-FY; 80053; 81003; 82550; 82962; 83735; 84484; 85025; 85610; 85730; 93005; 93010; 93971-TC; 96374; 99284-25; J0131